=== PATIENT | female | born 1955 | race Caucasian/White ===

== ENCOUNTER → 2016-12-22 | Outpatient (CLI) | payer BC ==
[~2016-12-22] MED LIST: MULT-506 PO; OMEG10007 PO; [UNRECOGNIZED DRUG - OTHER]
--- NOTE | 2016-12-22 13:07 | MAMMOGRAPHY REPORT ---
BILATERAL DIGITAL SCREENING MAMMOGRAM TOMOSYNTHESIS WITH CAD: 12/22/2016 CLINICAL HISTORY: Routine screening. Patient has no complaints. TECHNIQUE: Bilateral breast tomosynthesis in addition to standard 2D mammography was performed. Curre nt study was also evaluated with a Computer Aided Detection (CAD) system. COMPARISON: Comparison is made to exams dated: 12/20/2015 mammogram, 11/29/2013 mammogram, 11/28/2012 m ammogram, 11/27/2011 mammogram - [facility], 08/19/2007, and 01/24/2003 mammogram - [facility]. BREAST COMPOSITION: There are scattered areas of fibroglandular density in both breasts. FINDINGS: There is a new 11 mm circumscribed mass in the upper outer middle to posterior left breast , for which additional targeted ultrasound is recommended. There is also possible focal asymmetry po sterior to the circumscribed mass for which additional spot compression tomosynthesis views and possi jazmin ultrasound are recommended, although this could represent normal overlapping tissue. There are scattered stable benign-appearing rounded punctate microcalcifications bilaterally. A stab le metallic biopsy marker in the 12:00 middle one third of the left breast. No other suspicious mass, architectural distortion or cluster of microcalcifications is seen. IMPRESSION: ACR BI-RADS CATEGORY 0: INCOMPLETE EVALUATION: NEED ADDITIONAL IMAGING EVALUATION The new circumscribed 11 mm mass in the left upper outer quadrant, and possible adjacent focal asymme try need additional imaging evaluation. The patient will be called to schedule an appointment. Approximately 10% of breast cancers are not detected with mammography. A negative mammographic report should not delay biopsy if a clinically suggestive mass is present. Jeannine Wiggins M.D. ay/:12/22/2016 08:43:52 Counselor Supervisor: Katelynn Gustafson RT(R)(Sabine)(BD), [facility] letter sent: Addl Imaging 0 BI-RADS Code: ACR BI-RADS Category 0: Incomplete Evaluation: Need Additional Imaging Evaluation
== END | disposition home or self-care (01) ==
LOC: C.MAMM 08:03
PROVIDERS: ATTEND Internal Medicine
DX: Z12.31 Encounter for screening mammogram for malignant neoplasm of breast (principal); N63 Unspecified lump in breast

== ENCOUNTER → 2016-12-31 | Outpatient (CLI) | payer BC ==
--- NOTE | 2016-12-31 16:01 | MAMMOGRAPHY REPORT ---
UNILATERAL LEFT DIGITAL DIAGNOSTIC MAMMOGRAM TOMOSYNTHESIS AND TARGETED LEFT ULTRASOUND: 12/31/2016 CLINICAL HISTORY: Callback from screening mammogram for left breast mass and possible left breast asy mmetry. TECHNIQUE: Breast tomosynthesis in addition to standard 2D mammography was performed. Spot compress ion left CC and MLO 2-D and tomosynthesis images were obtained. COMPARISON: Comparison is made to exams dated: 12/22/2016 mammogram, 12/20/2015 mammogram, 11/29/2013 m ammogram, 11/28/2012 mammogram, 11/27/2011 mammogram - [facility], and 08/19/2007. BREAST COMPOSITION: There are scattered areas of fibroglandular density in the left breast. FINDINGS: Spot compression views of the left breast demonstrate a round circumscribed 12 mm mass in the left upper outer quadrant. The previously described possible asymmetry posterior to the mass pritchard s not persist on the additional spot compression views, and is benign and compatible with normal fibr oglandular tissue. Targeted ultrasound was performed of the left upper outer quadrant in the region of the mammographic mass. In the left 3:00 breast, 9 cm from the nipple, there is an oval circumscribed anechoic mass wh ich measures 11 x 8 x 10 mm. This corresponds with the mammographic mass and is consistent with a be nign cyst. IMPRESSION: ACR BI-RADS CATEGORY 2: BENIGN, TARGETED ULTRASOUND ACR BI-RADS CATEGORY 2: BENIGN Benign 11 mm cyst in the left 3:00 breast on ultrasound, which corresponds with the new mammographic mass. There is no mammographic or targeted sonographic evidence of malignancy. A 1 year screening ma mmogram is recommended. The patient has been verbally notified of the results. Approximately 10% of breast cancers are not detected with mammography. A negative mammographic report should not delay biopsy if a clinically suggestive mass is present. Susan Proctor M.D. ah/:12/31/2016 14:35:20 Glass Beveller: Brooklynn ARAGON(Kiersten)(M), [facility] letter sent: Normal 1/2 BI-RADS Code: ACR BI-RADS Category 2: Benign Ultrasound BI-RADS: ACR BI-RADS Category 2: Benign
== END | disposition home or self-care (01) ==
LOC: C.MAMM 14:02
PROVIDERS: ATTEND Internal Medicine
DX: N63 Unspecified lump in breast (principal); R92.2 Inconclusive mammogram

== ENCOUNTER → 2017-12-24 | Outpatient (CLI) | payer OTHER ==
--- NOTE | 2017-12-27 07:45 | MAMMOGRAPHY REPORT ---
BILATERAL DIGITAL SCREENING MAMMOGRAM TOMOSYNTHESIS WITH CAD: 12/24/2017 CLINICAL HISTORY: Routine screening. Patient has no complaints. TECHNIQUE: The study was acquired using full field digital technology and interpreted from soft copy. Breast tomosynthesis in addition to standard 2D mammography was performed. Current study was also ev aluated with a Computer Aided Detection (CAD) system. COMPARISON: Comparison is made to exams dated: 12/31/2016 mammogram, 12/22/2016 mammogram, 12/20/2015 m ammogram, 11/29/2013 mammogram, 11/28/2012 mammogram, and 11/27/2011 mammogram - [facility]. BREAST COMPOSITION: There are scattered areas of fibroglandular density in both breasts. FINDINGS: No suspicious masses, calcifications, or areas of architectural distortion are noted in either breast . There has been no significant interval change compared to prior exams. Bilateral benign-appearing c alcifications are not significantly changed. A biopsy clip is again noted within the left 12:[address] Circumscribed mass within the left upper outer quadrant is again noted and was shown to represen t a benign cyst on the prior 2016 ultrasound exam. Other bilateral nodularity is stable compared to prior exams. IMPRESSION: BIRADS 2:BENIGN There is no mammographic evidence of malignancy. A 1 year screening mammogram is recommended.( 019) The patient will receive written notification of the results. Some breast cancers are not detected with mammography. A negative mammographic report should not james y biopsy if a clinically suggestive mass is present. Susan Proctor M.D. ah/:12/24/2017 15:44:40 Civil Design Specialist: RT Liseth(R)(M)(BD), [facility] letter sent: Normal 1/2 BI-RADS Code: ACR BI-RADS Category 2: Benign
== END | disposition home or self-care (01) ==
LOC: C.MAMM 08:42
PROVIDERS: ATTEND Internal Medicine
DX: Z12.31 Encounter for screening mammogram for malignant neoplasm of breast (principal)

== ENCOUNTER 2018-09-08 17:53 | Inpatient (IN) ==
[2018-09-08] MEDS ORDERED: SODIUM CHLORIDE 0.9% 1000ML 1,000 ML IV ONE (18:16)
[2018-09-08] MEDS ORDERED: ONDANSETRON INJ 2 MG/ML 2 ML VIAL IV STA ×2 (18:16→20:41)
--- NOTE | 2018-09-08 19:00 | XRay Report ---
XR chest 1V portable HISTORY: 63 years-old Female cough, chills acute right lower rib pain with cough and chills COMPARISON: None available TECHNIQUE: Portable AP view of the chest FINDINGS: Cardiac silhouette is upper limits of normal in size. There is no pneumothorax, large pleural effusio n or overt pulmonary edema. Subsegmental left basilar opacities predominately appear to be linear. Mi ld blunting of the right costophrenic angle suggests atelectasis. Bones appear grossly intact. IMPRESSION: Minimal linear left basilar opacities suggest probable atelectasis. Pneumonitis considere d less likely. The above report was generated using voice recognition software. It may contain grammatical, syntax o r spelling errors. Electronically signed by: Diego Carpenter M.D. 09/08/2018 6:59 PM
[2018-09-08] MEDS: fentaNYL citrate 100 MCG/2 ML VIAL IV PRN ×2 (19:15→21:38)
[2018-09-08 19:19] LABS: Basophils # (auto) 0.02 K/uL (0-0.2); Basophils % (auto) 0.3 %; Eosinophils # (auto) 0.07 K/uL (0-0.5); Eosinophils % (auto) 0.9 %; Hemoglobin 15.4 g/dL (12.0-16.0); Immature Granulocytes # (auto) 0.02 K/uL (0.00-0.02); Immature Granulocytes % (auto) 0.3 %; Lymphocytes # (auto) 1.64 K/uL (1.2-3.4); Lymphocytes % (auto) 21.5 %; Mean Corpuscular Hgb Conc 34.2 g/dL (32-36); Mean Platelet Volume 9.8 fL (7.4-10.4); Monocytes # (auto) 0.67 K/uL (0.11-0.59); Monocytes % (auto) 8.8 %; Neutrophils % (auto) 68.2 %; Platelet Count 246 K/uL (130-400); RDW Coefficient of Variation 13.8 % (11.5-14.5); RDW Standard Deviation 42.4 fL (36.4-46.3); Red Blood Count 5.36 M/uL (4.2-5.4); White Blood Count 7.62 K/uL (4.8-10.8)
[2018-09-08 19:40] LABS: Alanine Aminotransferase 499 U/L (12-78); Albumin Level 3.7 gm/dl (3.4-5.0); BUN Creatinine Ratio 13.3 (10-20); Blood Urea Nitrogen 11 mg/dl (7-18); Calcium 9.3 mg/dl (8.5-10.1); Carbon Dioxide 27 mmol/L (21-32); Chloride 109 mmol/L (98-107); Est GFR (African American) 88.2; Est GFR (Non-African American) 76.1; Glucose 94 mg/dl (70-99); Sodium 142 mmol/L (136-145)
[2018-09-08 19:43] LABS: Albumin Globulin Ratio 0.9 (0.9-2); Alkaline Phosphatase 149 U/L (45-117); Bilirubin,Total 2.1 mg/dl (0.2-1); Total Protein 7.7 gm/dl (6.4-8.2); Troponin I < 0.015 ng/ml (0-0.045)
--- NOTE | 2018-09-08 20:06 | Ultrasound Report ---
US gallbladder HISTORY: 63 years-old Female ruq pain, n/v acute right upper quadrant abdominal pain with nausea and vomiting COMPARISON: Chest radiograph of same day TECHNIQUE: Multiple real-time sonographic images of the abdominal right upper quadrant were obtained assessing grayscale appearance and color flow FINDINGS: Imaged pancreas appears normal. There may be mild intrahepatic biliary ductal dilation. There is nons pecific slightly increased echogenicity of the liver. No evidence of ascites or cirrhosis. Mild gallb ladder distention. Suggestion of trace pericholecystic fluid versus a meniscal body wall which measur es the upper limits of normal at 3 mm. Sonographic Alvarado sign reported as negative. Common bile duct is dilated measuring 1.4 cm. Trace gallbladder sludge without shadowing cholelithiasis. Imaged right kidney demonstrates no renal calculi. Mild pelviectasis incidentally noted. IMPRESSION: 1. Mild gallbladder distention with gallbladder sludge. Additionally, the gallbladder wall measures w ithin the upper limits of normal and there is suggestion of trace pericholecystic edema versus edemat ous gallbladder wall. Correlate clinically to exclude acute acalculus cholecystitis. 2. Dilated common bile duct without obstructing biliary stone or lesion identified on these images. C orrelate clinically and with laboratory analysis to exclude obstructive etiology. 3. Suggestion of hepatic steatosis. The above report was generated using voice recognition software. It may contain grammatical, syntax o r spelling errors. Electronically signed by: Diego Carpenter M.D. 09/08/2018 8:04 PM
[2018-09-08 20:39] LABS: Prothrombin Time 10.6 Seconds (9.0-12.0)
[2018-09-08 20:44] LABS: Potassium 3.8 mmol/L (3.5-5.1)
[2018-09-08] MEDS ORDERED: SODIUM CHLORIDE 0.9% 1000ML 1,000 ML IV SCH (20:45)
[2018-09-08 20:49] LABS: Magnesium 2.3 mg/dl (1.8-2.4)
[2018-09-08 20:51] LABS: Appearance Urine Clear (Clear); Bacteria Urine Automated Negative (Negative); Bilirubin Urine Negative (Negative); Blood Urine Negative (Negative); Color Urine Yellow; Glucose Urine UA Negative (Negative); Ketones Urine Negative (Negative); Leukocyte Esterase Urine 1+ (Negative); Nitrite Urine Negative (Negative); Protein Urine Negative (Negative); RBC Urine Automated 0-4 /hpf (0-4); Specific Gravity Urine 1.007 (1.000-1.030); Urobilinogen Urine Negative (Negative); pH Urine 7.5 (4.5-7.5)
--- NOTE | 2018-09-08 21:51 | History & Physical Report ---
Date of Service September 08, 2018 Assessment & Plan (1) Cholecystitis: Acalculous cholecystitis/pancreatitis-- Patient symptoms, and imaging via gallbladder ultrasound and MRCP did not detect any stones in the common bile duct or mass. NPO NSS + KCl 20 mEq at 100 mils per hour. Zosyn 3.375 mg IV every 8 hours. Zofran 4 mg IV every 6 hours as needed Pantoprazole 40 mg IV daily Morphine sulfate 4 mg IV every 3 hours as needed pain. Follow serial CBC with differential, chemistry profile, magnesium and lipase levels. Consult gastroenterology for possible ERCP. If the ERCP is not performed, then consult will be made for general surgery Present on Admission?: Yes (2) Pancreatitis: As above. Present on Admission?: Yes History of Present Illness Chief Complaint: Patient presents emergency department with complaint of abdominal discomfort in the epigastric and right upper quadrant area with rotation around her right flank, along with nausea. Primary Care Provider: Zeyad Chambers MD The patient is a 63-year-old female who presents with above symptoms worsening over the past 24 hours. Upon reflection, she members having a similar episode a week and half or so ago and has had some indigestion in between times. She has not had recent travels or sick exposures. 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 Beliefs That Will Affect Care: None marital status: Current Living Situation: Spouse Other Information That Helps Us Care for You: No Feels Safe at Home: Yes Safety Concerns: Feels Safe At This Time Smoking Status: Never smoker Hx Alcohol Use: Yes Hx Substance Use: No Review of Systems The patient denies chest pain, palpitations, shortness of breath, dyspnea on exertion, cough, lower extremity swelling, sore throat, fevers, chills, sweats, vomiting, diarrhea , constipation, abdominal pain, pelvic pain, blood in urine or stool, dysuria, urinary frequency or urgency, lightheadedness, dizziness, headache, memory loss, loss of consciousness, rash, abnormal bruising or bleeding, imbalance, focal or generalized weakness, numbness or tingling in arms or legs, generalized arthralgias or myalgias, back or neck pain, or night sweats. The review of systems is otherwise negative other than for that already noted above, and at least 10 systems have been reviewed. Physical Exam Vital Signs (Past 24 Hours): Last Vital Signs Temp 36.6 C 09/08/18 17:59 Pulse 60 09/08/18 21:37 Resp 14 09/08/18 21:37 BP 183/92 H 09/08/18 21:37 Pulse Ox 89 L 09/08/18 21:49 Physical Exam: The patient is awake, alert and oriented 3, well developed and well nourished, normocephalic and atraumatic, lying in bed and in no acute distress. HEENT--PERRL, EOMI, mucous membranes and oropharynx dry. Neck--supple. No JVD. No bruits. Thyroid normal, trachea midline, no adenopathy. Heart--normal S1 and S2. No murmurs, rubs or gallops. Lungs--clear bilaterally, no respiratory distress, no accessory muscle use. Abdomen--normal bowel sounds and soft. Tender in epigastrium and right upper quadrant. Nondistended. Extremities--no cyanosis or clubbing. No edema. There are good distal pulses b/l. Dermatologic--normal skin turgor, normal color, no abnormal lymph nodes, no rash. Neurologic--cranial nerves II through XII grossly intact. Rheumatologic--normal range of motion. Psychiatric--normal affect. Results & Data Laboratory Results Laboratory Results WBC 7.62 K/uL (4.8-10.8) 09/08/18 19:11 RBC 5.36 M/uL (4.2-5.4) 09/08/18 19:11 Hgb 15.4 g/dL (12.0-16.0) 09/08/18 19:11 Hct 45.0 % (37-47) 09/08/18 19:11 MCV 84.0 fL (80-100) 09/08/18 19:11 MCH 28.7 pg (25-34) 04/04/19 19:11 MCHC 34.2 g/dL (32-36) 09/08/18 19:11 RDW Std Deviation 42.4 fL (36.4-46.3) 09/08/18 19:11 RDW Coeff of Antoine 13.8 % (11.5-14.5) 09/08/18 19:11 Plt Count 246 K/uL (130-400) 09/08/18 19:11 MPV 9.8 fL (7.4-10.4) 09/08/18 19:11 Immature Gran % (Auto) 0.3 % 09/08/18 19:11 Neut % (Auto) 68.2 % 09/08/18 19:11 Lymph % (Auto) 21.5 % 09/08/18 19:11 [place] % (Auto) 8.8 % 09/08/18 19:11 Eos % (Auto) 0.9 % 09/08/18 19:11 Baso % (Auto) 0.3 % 09/08/18 19:11 Immature Gran # (Auto) 0.02 K/uL (0.00-0.02) 09/08/18 19:11 Neut # (Auto) 5.20 K/uL (1.4-6.5) 09/08/18 19:11 Lymph # (Auto) 1.64 K/uL (1.2-3.4) 09/08/18 19:11 [place] # (Auto) 0.67 K/uL (0.11-0.59) H 09/08/18 19:11 Eos # (Auto) 0.07 K/uL (0-0.5) 09/08/18 19:11 Baso # (Auto) 0.02 K/uL (0-0.2) 09/08/18 19:11 PT 10.6 Seconds (9.0-12.0) 09/08/18 20:19 INR 1.0 (0.9-1.1) 09/08/18 20:19 Sodium 142 mmol/L (136-145) 09/08/18 19:11 Potassium 3.8 mmol/L (3.5-5.1) 09/08/18 20:19 Chloride 109 mmol/L (98-107) H 09/08/18 19:11 Carbon Dioxide 27 mmol/L (21-32) 09/08/18 19:11 Anion Gap 6.0 (3-11) 09/08/18 19:11 BUN 11 mg/dl (7-18) 09/08/18 19:11 Creatinine 0.83 mg/dl (0.6-1.2) 09/08/18 19:11 Est Cr Clr Drug Dosing 78.0 ml/min 09/08/18 19:11 Est GFR ( Amer) 88.2 09/08/18 19:11 Est GFR (Non-Af Amer) 76.1 09/08/18 19:11 BUN/Creatinine Ratio 13.3 (10-20) 09/08/18 19:11 Glucose 94 mg/dl (70-99) 09/08/18 19:11 Calcium 9.3 mg/dl (8.5-10.1) 09/08/18 19:11 Magnesium 2.3 mg/dl (1.8-2.4) 09/08/18 20:19 Total Bilirubin 2.1 mg/dl (0.2-1) H 09/08/18 19:11 AST 633 U/L (15-37) H 09/08/18 20:19 ALT 499 U/L (12-78) H 09/08/18 19:11 Alkaline Phosphatase 149 U/L (45-117) H 09/08/18 19:11 Troponin I < 0.015 ng/ml (0-0.045) 09/08/18 19:11 Total Protein 7.7 gm/dl (6.4-8.2) 09/08/18 19:11 Albumin 3.7 gm/dl (3.4-5.0) 09/08/18 19:11 Globulin 4.0 gm/dl (2.5-4.0) 09/08/18 19:11 Albumin/Globulin Ratio 0.9 (0.9-2) 09/08/18 19:11 Lipase 3582 U/L (73-393) H 09/08/18 19:11 Urine Color Yellow 09/08/18 20:15 Urine Appearance Clear (Clear) 09/08/18 20:15 Urine pH 7.5 (4.5-7.5) 09/08/18 20:15 Ur Specific [place] 1.007 (1.000-1.030) 09/08/18 20:15 Urine Protein Negative (Negative) 09/08/18 20:15 Urine Glucose (UA) Negative (Negative) 09/08/18 20:15 Urine Ketones Negative (Negative) 09/08/18 20:15 Urine Blood Negative (Negative) 09/08/18 20:15 Urine Nitrite Negative (Negative) 09/08/18 20:15 Urine Bilirubin Negative (Negative) 09/08/18 20:15 Urine Urobilinogen Negative (Negative) 09/08/18 20:15 Ur Leukocyte Esterase 1+ (Negative) H 09/08/18 20:15 Urine WBC (Auto) 1-5 /hpf (0-5) 09/08/18 20:15 Urine RBC (Auto) 0-4 /hpf (0-4) 09/08/18 20:15 U Hyaline Cast (Auto) 1-5 /lpf (0-5) 09/08/18 20:15 U Epithel Cells (Auto) 10-20 /lpf (0-5) H 09/08/18 20:15 Urine Bacteria (Auto) Negative (Negative) 09/08/18 20:15 Hepatitis C Ab Screen Neg (Neg) 09/08/18 20:19 Diagnostic Findings [facility], [place] [phone] XRay Report Patient: ABRAN HELTON Date: 09/08/18 MR#: [id number]: 952 [address]SH[address] Acct ID:[id number]: Date: 1955[facility] Zip[facility] [place] [address] Age: 63Location: ED Sex: F Room/Bed: Att Phy: Diagnosis: PAIN IN STOMACH Alexandrea Phy: Zeyad Chambers, MDService Date: 09/08/18 Fam Phy: Interpreting Phy: Tye Carpenter Admit Phy: Ordering Phy: Adelaida Angel DO cc: ~ XR chest 1V portable HISTORY: 63 years-old Female cough, chills acute right lower rib pain with cough and chills COMPARISON: None available TECHNIQUE: Portable AP view of the chest FINDINGS: Cardiac silhouette is upper limits of normal in size. There is no pneumothorax, large pleural effusion or overt pulmonary edema. Subsegmental left basilar opacities predominately appear to be linear. Mild blunting of the right costophrenic angle suggests atelectasis. Bones appear grossly intact. IMPRESSION: Minimal linear left basilar opacities suggest probable atelectasis. Pneumonitis considered less likely. The above report was generated using voice recognition software. It may contain grammatical, syntax or spelling errors. Electronically signed by: Diego Carpenter M.D. 09/08/2018 6:59 PM [place], [place] [phone] Ultrasound Report Patient: ABRAN HELTON Date: 09/08/18 MR#: [id number]: [address] Acct ID:[id number]: Date: 1955[facility] Zip: [place] [address] Age: 63Location: ED Sex: F Room/Bed: Att Phy: Diagnosis: PAIN IN STOMACH Alexandrea Phy: Zeyad Chambers MDService Date: 09/08/18 Fam Phy: Interpreting Phy: Tye Carpenter Admit Phy: Ordering Phy: Adelaida Angel DO cc: ~ US gallbladder HISTORY: 63 years-old Female ruq pain, n/v acute right upper quadrant abdominal pain with nausea and vomiting COMPARISON: Chest radiograph of same day TECHNIQUE: Multiple real-time sonographic images of the abdominal right upper quadrant were obtained assessing grayscale appearance and color flow FINDINGS: Imaged pancreas appears normal. There may be mild intrahepatic biliary ductal dilation. There is nonspecific slightly increased echogenicity of the liver. No evidence of ascites or cirrhosis. Mild gallbladder distention. Suggestion of trace pericholecystic fluid versus a meniscal body wall which measures the upper limits of normal at 3 mm. Sonographic Alvarado sign reported as negative. Common bile duct is dilated measuring 1.4 cm. Trace gallbladder sludge without shadowing cholelithiasis. Imaged right kidney demonstrates no renal calculi. Mild pelviectasis incidentally noted. IMPRESSION: 1. Mild gallbladder distention with gallbladder sludge. Additionally, the gallbladder wall measures within the upper limits of normal and there is suggestion of trace pericholecystic edema versus edematous gallbladder wall. Correlate clinically to exclude acute acalculus cholecystitis. 2. Dilated common bile duct without obstructing biliary stone or lesion identified on these images. Correlate clinically and with laboratory analysis to exclude obstructive etiology. 3. Suggestion of hepatic steatosis. The above report was generated using voice recognition software. It may contain grammatical, syntax or spelling errors. Electronically signed by: Diego Carpenter M.D. 09/08/2018 8:04 PM Dictated: 09/08/181999 Transcribed: 09/08/181999 [place], [place] [phone] Magnetic Resonance Report Patient: ABRAN HELTON Date: 09/08/18 MR#: [id number]: 952 [address]SHER Acct ID:[id number]: Date: 1955[facility] Zip: [place] [address] Age: 63Location: 3W Sex: F Room/Bed: [address] Phy: Avila Stone M.D.Diagnosis: ACALCULOUS CHOLECYSTITIS,PANCREATITIS Alexandrea Phy: Zeyad Chambers, STACYervice Date: 09/08/18 [facility] Phy: Interpreting Phy: Tye Carpenter Admit Phy: Avila Stone M.D. Ordering Phy: Adelaida Angel DO cc: ~ MR MRCP HISTORY: 63 years-old Female pancreatitis, dilated CBD acute right upper quadrant abdominal pain with nausea COMPARISON: Right upper quadrant abdominal ultrasound of same day TECHNIQUE: MRCP according to institutional protocol was obtained without the use of contrast. FINDINGS: Lower chest appears unremarkable. There is suggestion of multiple bilateral renal sinus cysts, left greater than right. No aortic aneurysm or adenopathy. No bowel dilation. Liver, spleen, pancreas and adrenal glands appear grossly unremarkable. Abdominal wall and bony structures also are unremarkable. Study is mildly motion degraded. Dilated common bile duct measures up to 12 mm transversely. No significant intrahepatic biliary ductal dilation. Ill-defined foci noted within the distribution the distal common bile duct as seen on image 94 series 5 and image 12 series 3 are likely artifactual. No definitive choledocholithiasis identified. No filling defect seen within the visualized cystic duct. Gallbladder is distended with mildly thickened is edematous wall. No cholelithiasis identified. Trace fluid about the aditya hepatis. Pancreatic duct appears normal. No evidence of pancreatic divisum. IMPRESSION: 1. Gallbladder distention with edematous mildly thickened gallbladder wall redemonstrated. No associated cholelithiasis identified. Correlate clinically to exclude acalculus cholecystitis. 2. Dilation of the common bile duct, 1.2 cm redemonstrated. Ill-defined foci within the distribution of the distal common bile duct are likely artifactual with choledocholithiasis considered less likely. 3. Trace fluid noted about the aditya hepatis. The above report was generated using voice recognition software. It may contain grammatical, syntax or spelling errors. Electronically signed by: Diego Carpenter M.D. 09/08/2018 10:49 PM Dictated: 09/08/182237 Transcribed: 09/08/182237 Code Status & VTE Plan Code Status Full code VTE Prophylaxis Plan VTE Prophylaxis will be ordered: Yes (1) Pancreatitis Acute pancreatitis complication: unspecified Chronicity: acute Pancreatitis type: unspecified pancreatitis type Qualified Code(s): K85.90 - Acute pancreatitis without necrosis or infection, unspecified
[2018-09-08] MEDS ORDERED: PIPERACILL/TAZOBAC CONSULT ACTIVE PRN (22:42)
[2018-09-08] MEDS ORDERED: MoRPHine SULFATE 4 MG/ML 1 ML CARP\\VIAL IV PRN (22:42)
[2018-09-08] MEDS ORDERED: ONDANSETRON INJ 2 MG/ML 2 ML VIAL IV PRN (22:42)
--- NOTE | 2018-09-08 22:51 | Magnetic Resonance Report ---
MR MRCP HISTORY: 63 years-old Female pancreatitis, dilated CBD acute right upper quadrant abdominal pain wit h nausea COMPARISON: Right upper quadrant abdominal ultrasound of same day TECHNIQUE: MRCP according to institutional protocol was obtained without the use of contrast. FINDINGS: Lower chest appears unremarkable. There is suggestion of multiple bilateral renal sinus cysts, left g reater than right. No aortic aneurysm or adenopathy. No bowel dilation. Liver, spleen, pancreas and a drenal glands appear grossly unremarkable. Abdominal wall and bony structures also are unremarkable. Study is mildly motion degraded. Dilated common bile duct measures up to 12 mm transversely. No signi ficant intrahepatic biliary ductal dilation. Ill-defined foci noted within the distribution the dista l common bile duct as seen on image 94 series 5 and image 12 series 3 are likely artifactual. No defi nitive choledocholithiasis identified. No filling defect seen within the visualized cystic duct. Gall bladder is distended with mildly thickened is edematous wall. No cholelithiasis identified. Trace flu id about the aditya hepatis. Pancreatic duct appears normal. No evidence of pancreatic divisum. IMPRESSION: 1. Gallbladder distention with edematous mildly thickened gallbladder wall redemonstrated. No associa natasha cholelithiasis identified. Correlate clinically to exclude acalculus cholecystitis. 2. Dilation of the common bile duct, 1.2 cm redemonstrated. Ill-defined foci within the distribution of the distal common bile duct are likely artifactual with choledocholithiasis considered less likely . 3. Trace fluid noted about the aditya hepatis. The above report was generated using voice recognition software. It may contain grammatical, syntax o r spelling errors. Electronically signed by: Diego Carpenter M.D. 09/08/2018 10:49 PM
[2018-09-08] MEDS ORDERED: NSS + 20MEQ KCL 20 MEQ/1,000 ML BAG IV SCH (23:00)
[2018-09-08] MEDS ORDERED: PIPERACILLIN/TAZOBACTAM 3.375 GM in DEXTROSE 5% 100 ML IV ONE (23:00)
[2018-09-09] MEDS ORDERED: PROCHLORPERAZINE 5 MG in SYRINGE 4 ML IV PRN (00:08)
[2018-09-09] MEDS: PIPERACILLIN/TAZOBACTAM 3.375 GM in DEXTROSE 5% 100 ML IV SCH ×2 (06:01→18:01)
[2018-09-09 06:29] LABS: Basophils # (auto) 0.01 K/uL (0-0.2); Basophils % (auto) 0.2 %; Eosinophils # (auto) 0.07 K/uL (0-0.5); Eosinophils % (auto) 1.1 %; Hemoglobin 14.2 g/dL (12.0-16.0); Immature Granulocytes # (auto) 0.02 K/uL (0.00-0.02); Immature Granulocytes % (auto) 0.3 %; Lymphocytes # (auto) 1.16 K/uL (1.2-3.4); Lymphocytes % (auto) 18.7 %; Mean Corpuscular Hgb Conc 33.8 g/dL (32-36); Mean Platelet Volume 9.4 fL (7.4-10.4); Monocytes # (auto) 0.31 K/uL (0.11-0.59); Neutrophils # (auto) 4.64 K/uL (1.4-6.5); Neutrophils % (auto) 74.7 %; Platelet Count 237 K/uL (130-400); RDW Coefficient of Variation 13.9 % (11.5-14.5); RDW Standard Deviation 42.4 fL (36.4-46.3); White Blood Count 6.21 K/uL (4.8-10.8)
[2018-09-09 06:46] LABS: Partial Thromboplastin Ratio 0.9; Partial Thromboplastin Time 23.9 Seconds (21.0-31.0); Prothrombin Time 10.7 Seconds (9.0-12.0)
[2018-09-09 06:56] LABS: Albumin Level 3.1 gm/dl (3.4-5.0); BUN Creatinine Ratio 12.8 (10-20); Calcium 8.6 mg/dl (8.5-10.1); Creatinine Clr Calc Pharmacy 76.2 ml/min; Est GFR (African American) 86.9
[2018-09-09 06:59] LABS: Albumin Globulin Ratio 0.9 (0.9-2); Bilirubin,Total 1.6 mg/dl (0.2-1); Globulin 3.3 gm/dl (2.5-4.0); Total Protein 6.4 gm/dl (6.4-8.2)
[2018-09-09] MEDS: LACTATED RINGER'S 1,000 ML IV SCH ×3 (09:34→22:37)
[2018-09-09] MEDS: PANTOprazole 40 MG in SYRINGE 0 ML IV SCH (10:54)
[2018-09-09 12:37] LABS: Alanine Aminotransferase 748 U/L (12-78); Alkaline Phosphatase 152 U/L (45-117); Bilirubin,Total 1.4 mg/dl (0.2-1); Total Protein 6.1 gm/dl (6.4-8.2)
[2018-09-09] MEDS ORDERED: PROPOFOL IV EMULSION 10 MG/ML 20 ML VIAL IV ONE (13:29)
[2018-09-09] MEDS ORDERED: LIDOCAINE HCL 2% 2 ML VIAL/AMP(20MG/ML) INFIL ONE (13:29)
[2018-09-09] MEDS ORDERED: ONDANSETRON INJ 2 MG/ML 2 ML VIAL ONE (13:29)
[2018-09-09] MEDS ORDERED: ROCURONIUM BROMIDE 10 MG/ML 5 ML VIAL ONE (13:29)
[2018-09-09] MEDS ORDERED: fentaNYL citrate 100 MCG/2 ML VIAL ONE ×2 (13:30→15:47)
[2018-09-09] MEDS ORDERED: MIDAZOLAM HCL 1 MG/ML 2ML VIAL ONE (13:30)
--- NOTE | 2018-09-09 13:33 | Gastrointestinal Consultation ---
Date of Consultation September 09, 2018 Assessment & Plan (1) Choledocholithiasis: Mr. Lewis is a 63 yr old female with elevated LFTs, dilated bile ducts, fever all suggestive of choledocholithasis with ascending cholangitis. 1. Cont Zosyn 2. Follow LFTs, lipase. WBC 3. ERCP this afternoon by Dr. Villalobos Supervising Physician Co-Signing Physician Notes I saw and evaluated the patient. She presents with interim discomfort over the past 2 weeks. Last night she presented to the emergency room and found to have elevation of her liver enzymes and pancreatic enzymes. MRCP was suspicious for a stone within the distal common bile duct. Physical examination No obvious distress, mild scleral icterus Abdomen soft mild right upper quadrant tenderness noted Impression: Patient with symptoms suggestive of gallstone pancreatitis. Given the equivocal imaging perhaps we should proceed with upper endoscopy and endoscopic ultrasound to identify ductal pathology. We will then proceed with ERCP for gallstone removal. We have discussed the risks of the procedures to include bleeding, infection, perforation, pain, pancreatitis and failed biliary cannulation. History of Present Illness Reason for Consultation: dilated bile duct Requesting Physician: Dr. Orellana Attending Physician: Charan Orellana MD History of Present Illness Ms. Jay Lewis is a 63 yr old female pt of Dr. Chambers with a an otherwise unremarkable PMH/PSH hx who presented to [facility] last evening for intermittent RUQ pain of one week duration. With the pain she has sometimes had nausea and vomiting. She had dark urine but no acholic stools. Last evening she had a fever and chills. Imaging with bile duct dilation to 1.2cm, equivocal for choledocholithiasis. Her daughter and are with her in her hospital room. She is awake, alert, oriented and hemodynamically stable. 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 Eyes: no vision changes, no eye redness or pain Respiratory: No SOB, no cough Cardiovascular: No irregular heartbeats or chest pain Abdomen: + intermittent RUQ pain, nausea/vomiting Ext: No edema Hem: No excessive bruising/bleeding Physical Exam Vital Signs (Past 24 Hours): Last Vital Signs Temp 36.9 C 09/09/18 07:45 Pulse 62 09/09/18 07:45 Resp 16 09/09/18 07:45 BP 138/88 09/09/18 07:45 Pulse Ox 95 09/09/18 07:45 Constitutional: WD/WN, vitals as above Eyes: PERRL, conjunctivae normal, anicteric sclerae ENMT: external ear and nose normal, oropharynx normal Neck: trachea midline, no thyromegaly Respiratory: normal respiratory effort, lungs clear to auscultation Cardiovascular: RRR, no murmur, no edema Gastrointestinal (Abdomen): Inspection/Auscultation: abdomen not distended Percussion/Palpation: + abdomen tender (RUQ) and abdomen soft Skin: normal turgor; no jaundice and no dry skin Neurologic: patellar DTR's 2+ bilat, sensation intact Psychiatric: A+Ox3, euthymic affect Lymphatic: no cervical or axillary lymphadenopathy Results & Data Diagnostic Findings MRCP 09/08/18: 1. Gallbladder distention with edematous mildly thickened gallbladder wall redemonstrated. No associated cholelithiasis identified. Correlate clinically to exclude acalculus cholecystitis. 2. Dilation of the common bile duct, 1.2 cm redemonstrated. Ill-defined foci within the distribution of the distal common bile duct are likely artifactual with choledocholithiasis considered less likely. 3. Trace fluid noted about the aditya hepatis. GB US 09/08/18: 1. Mild gallbladder distention with gallbladder sludge. Additionally, the gallbladder wall measures within the upper limits of normal and there is suggestion of trace pericholecystic edema versus edematous gallbladder wall. Correlate clinically to exclude acute acalculus cholecystitis. 2. Dilated common bile duct without obstructing biliary stone or lesion identified on these images. Correlate clinically and with laboratory analysis to exclude obstructive etiology. 3. Suggestion of hepatic steatosis Medications Administered zosyn
--- NOTE | 2018-09-09 13:41 | Anesthesiology Consultation ---
Date of Service September 09, 2018 Assessment & Plan Chart Review Chart Review: Acceptable Risk for Surgery and Patient NOT seen in Pre Admission Testing Consults Requested none ASA ASA2 Proposed Anesthesia Anesthesia Type: General Risk / Benefits Reviewed With: PT / POA / Parent / Guardian, Accepts Plan and Informed Consent Obtained NPO Date Last Intake of Fluids: 09/08/18 Time Last Intake of Fluids: 23:00 Date Last Intake of Solids: 09/08/18 Time Last Intake of Solids: 19:00 History Surgery Operation Date: 09/09/18 13:00 Proposed Procedures p Endoscopic Retrograde Cholangiopancreatography - Nona Villalobos Height/Weight Height: 5 ft 4 in Weight: 89.5 kg Allergies Allergy/AdvReac Type Severity Reaction Status Date / Time Sulfa (Sulfonamide Allergy Unknown UNKNOWN Verified 09/08/18 19:16 Antibiotics) Medications Home Medications Medication Instructions Recorded Confirmed Last Taken No Known Home Medications 09/08/18 09/08/18 Unknown Active Medications Generic Name Dose Route Start Last Admin Trade Name Freq PRN Reason Stop Dose Admin Pantoprazole Sodium 40 mg/ 10 mls @ 5 mls/min 09/09/18 11:00 09/09/18 10:54 Syringe IV 10/09/18 10:59 5 mls/min DAILY@1100 DENITA Administration Piperacillin Sod/Tazobactam 115 mls @ 28.75 mls/hr 09/09/18 06:00 09/09/18 10:55 Sod 3.375 gm/ Dextrose IV 09/19/18 05:59 Infused Q8H DENITA Infusion Protocol Lactated Ringer's 1,000 mls @ 200 mls/hr 09/09/18 09:00 09/09/18 13:23 Lr IV 09/09/18 18:59 0 mls/hr .Q5H DENITA Infusion Past Medical History Medical History Obesity Past Surgical History Surgical History No significant past surgical history H/O colonoscopy Past Anesthesia History No Hx of Anesthesia Complications and No Family Hx of Anesthesia Complications History of PONV No Motion Sickness Screening History of Motion Sickness: No Social History Smoking Status: Never smoker Do You Dip or Chew Tobacco: No Hx Alcohol Use: Yes alcohol intake frequency: holidays/special occasions only Hx Substance Use: No substance use type: does not use Exercise / Class Metabolic Activity II 4-5 Yardwork/Stairs/Walk up hill Physical Exam Vital Signs Last Vital Signs Temp 36.9 C 09/09/18 07:45 Pulse 62 09/09/18 07:45 Resp 16 09/09/18 07:45 BP 138/88 09/09/18 07:45 Pulse Ox 95 09/09/18 07:45 Constitutional + obese ENMT Mouth: no dentition abnormality Thyromental Distance: > or= 3.5 Finger Breadths Mallampati Class: II Neck normal visual inspection and trachea midline; neck extension not limited Respiratory normal respiratory effort Auscultation: lungs clear to auscultation bilaterally Cardiovascular Rate/Rhythm: regular rate and regular rhythm Heart Sounds: no murmur Vessels: no carotid bruit Musculoskeletal Spine: normal cervical ROM Neurologic moves all extremities Motor/Sensory: no sensory deficit Psychiatric Orientation: alert and oriented x 3 Testing Electrocardiogram Date: 09/08/18 Findings: + SB @ (at 56 w/sinus arrhythmia;LAD;LVH) Chest X-Ray Date: 09/08/18 Findings: + atelectasis (left basilar) Laboratory Results 09/09/18 06:13 09/09/18 06:13 PT 10.7 Seconds (9.0-12.0) 09/09/18 06:13 INR 1.0 (0.9-1.1) 09/09/18 06:13 APTT 23.9 Seconds (21.0-31.0) 09/09/18 06:13 Urine Color Yellow 09/08/18 20:15 Urine Appearance Clear (Clear) 09/08/18 20:15 Urine pH 7.5 (4.5-7.5) 09/08/18 20:15 Ur Specific [place] 1.007 (1.000-1.030) 09/08/18 20:15 Urine Protein Negative (Negative) 09/08/18 20:15 Urine Glucose (UA) Negative (Negative) 09/08/18 20:15 Urine Ketones Negative (Negative) 09/08/18 20:15 Urine Nitrite Negative (Negative) 09/08/18 20:15 Ur Leukocyte Esterase 1+ (Negative) H 09/08/18 20:15 Urine WBC (Auto) 1-5 /hpf (0-5) 09/08/18 20:15 Urine RBC (Auto) 0-4 /hpf (0-4) 09/08/18 20:15 U Hyaline Cast (Auto) 1-5 /lpf (0-5) 09/08/18 20:15 U Epithel Cells (Auto) 10-20 /lpf (0-5) H 09/08/18 20:15 Urine Bacteria (Auto) Negative (Negative) 09/08/18 20:15
[2018-09-09 13:42] LABS: Bilirubin Direct 0.5 mg/dl (0-0.2)
--- NOTE | 2018-09-09 14:01 | History & Physical Bridge Note ---
Date of Service September 09, 2018 History & Physical Bridge Note I have examined the patient, reviewed the History & Physical and in the interval since the performance of the History & Physical I have noted the following changes of clinical significance: no changes noted
[2018-09-09] MEDS ORDERED: INDOMETHACIN 50 MG SUPP PR ONE (14:08)
--- NOTE | 2018-09-09 14:09 | Hospitalist Progress Note ---
Date of Service September 09, 2018 Assessment & Plan (1) Cholecystitis: Acalculous cholecystitis/pancreatitis-- Patient symptoms, and imaging via gallbladder ultrasound and MRCP did not detect any stones in the common bile duct or mass however there was CBD dilatation. NPO LR @ 200 ml/hr Continue Zosyn, Zofran, Protonix Morphine sulfate 4 mg IV every 3 hours as needed pain. AST, ALT peaked at 826 and 873, Lipase peaked at 17,931 though unclear if this is an accurate result as next value six hours later was 8,539. Consulted gastroenterology - for ERCP this afternoon (2) Pancreatitis: As above. (3) Hepatic steatosis: As seen on gallbladder US - lifestyle counseling, follow up outpatient Subjective Ms. Lewis is feeling better today than on admission. Her pain is well controlled, no nausea or vomiting. Review of Systems All systems reviewed & are unremarkable except as noted in HPI & below Physical Exam Vital Signs (Past 24 Hours): Last Vital Signs Temp 36.8 C 09/09/18 13:38 Pulse 66 09/09/18 13:38 Resp 16 09/09/18 13:38 BP 164/85 H 09/09/18 13:38 Pulse Ox 95 09/09/18 13:38 Physical Exam: General: no distress Eyes: normal inspection, PERLL Respiratory: chest non tender, clear to auscultation, normal breath sounds, no respiratory distress, no accessory muscle use Cardiac: regular rate and rhythm, no rub or gallop, no murmur, no edema, no jvd GI/: active bowel sounds, no abd pain or tenderness, soft, non distended Extremities: normal range of motion, normal strength, non tender Neuro/Psych: alert and oriented x 3, normal mood and affect Skin: normal color, dry Results & Data Laboratory Results Abnormal lab results 09/08/18 09/08/18 09/08/18 Range/Units 19:11 19:11 20:15 Lymph # (Auto) (1.2-3.4) K/uL Pettis # (Auto) 0.67 H (0.11-0.59) K/uL Chloride 109 H (98-107) mmol/L Total Bilirubin 2.1 H (0.2-1) mg/dl Direct Bilirubin (0-0.2) mg/dl AST (15-37) U/L ALT 499 H (12-78) U/L Alkaline Phosphatase 149 H (45-117) U/L Total Protein (6.4-8.2) gm/dl Albumin (3.4-5.0) gm/dl Lipase 3582 H (73-393) U/L Ur Leukocyte Esterase 1+ H (Negative) U Epithel Cells (Auto) 10-20 H (0-5) /lpf 09/08/18 09/09/18 09/09/18 Range/Units 20:19 06:13 06:13 Lymph # (Auto) 1.16 L (1.2-3.4) K/uL Pettis # (Auto) (0.11-0.59) K/uL Chloride 112 H (98-107) mmol/L Total Bilirubin 1.6 H (0.2-1) mg/dl Direct Bilirubin (0-0.2) mg/dl AST 633 H 826 H (15-37) U/L ALT 873 H (12-78) U/L Alkaline Phosphatase 160 H (45-117) U/L Total Protein (6.4-8.2) gm/dl Albumin 3.1 L (3.4-5.0) gm/dl Lipase (73-393) U/L Ur Leukocyte Esterase (Negative) U Epithel Cells (Auto) (0-5) /lpf 09/09/18 09/09/18 09/09/18 Range/Units 06:13 11:56 13:12 Lymph # (Auto) (1.2-3.4) K/uL Pettis # (Auto) (0.11-0.59) K/uL Chloride (98-107) mmol/L Total Bilirubin 1.4 H (0.2-1) mg/dl Direct Bilirubin 0.5 H (0-0.2) mg/dl AST 506 H (15-37) U/L ALT 748 H (12-78) U/L Alkaline Phosphatase 152 H (45-117) U/L Total Protein 6.1 L (6.4-8.2) gm/dl Albumin 3.0 L (3.4-5.0) gm/dl Lipase 30294 H 8539 H (73-393) U/L Ur Leukocyte Esterase (Negative) U Epithel Cells (Auto) (0-5) /lpf (1) Pancreatitis Acute pancreatitis complication: unspecified Chronicity: acute Pancreatitis type: unspecified pancreatitis type Qualified Code(s): K85.90 - Acute pancreatitis without necrosis or infection, unspecified
--- NOTE | 2018-09-09 14:19 | GI REPORT ---
Patient Name: Jay Lewis Procedure Date: 09/09/2018 2:08 PM Date of : 1955 Admit Type: Inpatient Age: 63 Gender: Female Attending MD: Nona Villalobos DO Procedure: Upper GI endoscopy Providers: Nona Villalobos DO Referring MD: Charan Stoll Indications: Epigastric abdominal pain, Abdominal pain in the right upper quadrant Medicines: General Anesthesia Complications: No immediate complications. Estimated blood loss: Minimal. Estimated Blood Loss: Estimated blood loss was minimal. Procedure: Pre-Anesthesia Assessment: - Prior to the procedure, a History and Physical was performed, and patient medications, allergies and sensitivities were reviewed. The patient's tolerance of previous anesthesia was reviewed. - The risks and benefits of the procedure and the sedation options and risks were discussed with the patient. All questions were answered and informed consent was obtained. - Patient identification and proposed procedure were verified prior to the procedure by the physician, the nurse and the program clinician. The procedure was verified in the procedure room. - Pre-procedure physical examination revealed no contraindications to sedation. - ASA Grade Assessment: II - A patient with mild systemic disease. - After reviewing the risks and benefits, the patient was deemed in satisfactory condition to undergo the procedure. - The anesthesia plan was to use general anesthesia. - Immediately prior to administration of medications, the patient was re-assessed for adequacy to receive sedatives. - The heart rate, respiratory rate, oxygen saturations, blood pressure, adequacy of pulmonary ventilation, and response to care were monitored throughout the procedure. - The physical status of the patient was re-assessed after the procedure. After obtaining informed consent, the endoscope was passed under direct vision. Throughout the procedure, the patient's blood pressure, pulse, and oxygen saturations were monitored continuously. The scope was introduced through the mouth, and advanced to the third part of duodenum. The upper GI endoscopy was accomplished without difficulty. The patient tolerated the procedure well. Findings: The examined esophagus was normal. The Z-line was regular and was found 38 cm from the incisors. The entire examined stomach was normal. The examined duodenum was normal. Impression: - Normal esophagus. - Z-line regular, 38 cm from the incisors. - Normal examined duodenum. - Normal stomach. - No specimens collected. Recommendation: - Perform an upper endoscopic ultrasound (UEUS) today. Nona Villalobos D.O. Nona Villalobos, 09/09/2018 2:19:13 PM This report has been signed electronically. Note Initiated On: 09/09/2018 2:08 PM Number of Addenda: 0 I attest to the content of the Intraoperative Record and orders documented therein, exceptions below {[id number]}
--- NOTE | 2018-09-09 14:34 | GI REPORT ---
Patient Name: Jay Lewis Procedure Date: 09/09/2018 2:09 PM Date of : 1955 Admit Type: Inpatient Age: 63 Gender: Female Attending MD: Nona Villalobos DO Procedure: Upper EUS Providers: Nona Villalobos DO Referring MD: Zeyad Tim Indications: Suspected choledocholithiasis, Epigastric abdominal pain, Abdominal pain in the right upper quadrant Medicines: General Anesthesia Complications: No immediate complications. Estimated blood loss: Minimal. Estimated Blood Loss: Estimated blood loss was minimal. Procedure: Pre-Anesthesia Assessment: - Prior to the procedure, a History and Physical was performed, and patient medications, allergies and sensitivities were reviewed. The patient's tolerance of previous anesthesia was reviewed. - The risks and benefits of the procedure and the sedation options and risks were discussed with the patient. All questions were answered and informed consent was obtained. - Patient identification and proposed procedure were verified prior to the procedure by the physician, the nurse and the rn oncology. The procedure was verified in the procedure room. - Pre-procedure physical examination revealed no contraindications to sedation. - ASA Grade Assessment: II - A patient with mild systemic disease. - After reviewing the risks and benefits, the patient was deemed in satisfactory condition to undergo the procedure. - The anesthesia plan was to use general anesthesia. - Immediately prior to administration of medications, the patient was re-assessed for adequacy to receive sedatives. - The heart rate, respiratory rate, oxygen saturations, blood pressure, adequacy of pulmonary ventilation, and response to care were monitored throughout the procedure. - The physical status of the patient was re-assessed after the procedure. After obtaining informed consent, the endoscope was passed under direct vision. Throughout the procedure, the patient's blood pressure, pulse, and oxygen saturations were monitored continuously. The Scope was introduced through the mouth, and advanced to the second part of duodenum. The upper EUS was accomplished without difficulty. The patient tolerated the procedure well. Findings: ENDOSONOGRAPHIC FINDING: : There was no sign of significant endosonographic abnormality in the ampulla. Many small stones and a moderate amoun of sludge were visualized endosonographically in the gallbladder. They were hyperechoic. There was dilation in the common bile duct which measured up to 8 mm. Two stones were visualized endosonographically in the common bile duct. They were hyperechoic. Moderate hyperechoic material consistent with sludge was visualized endosonographically in the common bile duct. There was no sign of significant endosonographic abnormality in the entire pancreas. The pancreatic duct measured up to 2 mm in diameter. No masses, no cysts, the pancreatic duct was thin in caliber. There was no sign of significant endosonographic abnormality in the left adrenal gland. No adrenal gland enlargement was identified. There was no sign of significant endosonographic abnormality in the left lobe of the liver. Homogeneous parenchyma and no focal pathology were identified. Impression: - There was no sign of significant pathology in the ampulla. - Many small stones/sludege were visualized endosonographically in the gallbladder. - There was dilation in the common bile duct which measured up to 8 mm. - Two stones were visualized endosonographically in the common bile duct. - Hyperechoic material consistent with sludge was visualized endosonographically in the common bile duct. - There was no sign of significant pathology in the entire pancreas. - Endosonographic images of the left adrenal gland were unremarkable. - No specimens collected. Recommendation: - Perform an ERCP today. Nona Vlilalobos D.O. Nona Villalobos DO 09/09/2018 2:33:29 PM This report has been signed electronically. Note Initiated On: 09/09/2018 2:09 PM Number of Addenda: 0 I attest to the content of the Intraoperative Record and orders documented therein, exceptions below {[id number]}
[2018-09-09] MEDS ORDERED: ONDANSETRON INJ 2 MG/ML 2 ML VIAL IV PRN (15:12)
[2018-09-09] MEDS ORDERED: ATROPINE SULFATE 0.1 MG/ML 10ML SYR IV PRN (15:12)
[2018-09-09] MEDS ORDERED: PROMETHAZINE HCL 12.5 MG in SODIUM CHLORIDE 0.9% 50 ML IV PRN (15:12)
[2018-09-09] MEDS ORDERED: NALOXONE HCL 0.4 MG/1 ML VIAL/CARP IV PRN (15:12)
[2018-09-09] MEDS ORDERED: LABETALOL HCL IV 5 MG/ML 20ML IV PRN (15:12)
[2018-09-09] MEDS ORDERED: ePHEDrine sulfate 50 MG/ML AMP IV PRN (15:12)
[2018-09-09] MEDS ORDERED: FLUMAZENIL 0.1 MG/1 ML 10 ML VIAL IV PRN (15:12)
--- NOTE | 2018-09-09 15:19 | Post Operative Brief Note ---
Immediate Post Op Note v1 Date of Surgery September 09, 2018 Pre & Post Diagnosis Operation Date: 09/09/18 13:00 Pre-Op Diagnosis: ACALCULOUS CHOLECYSTITIS,PANCREATITIS Post-Op Diagnosis: ACALCULOUS CHOLECYSTITIS,PANCREATITIS Procedure Operation Date: 09/09/18 13:00 Actual Procedures p Esophagogastroduodenoscopy, Endoscopic Ultrasound, Endoscopic Retrograde Cholangiopancreatography, gallstone extraction, biliary stent placement, sphincterotomy - Nona Villalobos Surgeon Nona Villalobos Video Clerk none Estimated Blood Loss 5 Findings See Below (Biliary stricture, choledocholihiasis)
--- NOTE | 2018-09-09 15:19 | GI REPORT ---
Patient Name: Jay Lewis Procedure Date: 09/09/2018 2:11 PM Date of : 1955 Admit Type: Inpatient Age: 63 Gender: Female Attending MD: Nona Villalobos DO Procedure: ERCP Providers: Nona Villalobos DO Referring MD: Zeyad Tim Indications: Abdominal pain of suspected biliary origin, Elevated liver enzymes Medicines: General Anesthesia Complications: No immediate complications. Estimated blood loss: Minimal. Estimated Blood Loss: Estimated blood loss was minimal. Procedure: Pre-Anesthesia Assessment: - Prior to the procedure, a History and Physical was performed, and patient medications, allergies and sensitivities were reviewed. The patient's tolerance of previous anesthesia was reviewed. - The risks and benefits of the procedure and the sedation options and risks were discussed with the patient. All questions were answered and informed consent was obtained. - Patient identification and proposed procedure were verified prior to the procedure by the physician, the nurse and the cyber software engineer. The procedure was verified in the procedure room. - Pre-procedure physical examination revealed no contraindications to sedation. - ASA Grade Assessment: II - A patient with mild systemic disease. - After reviewing the risks and benefits, the patient was deemed in satisfactory condition to undergo the procedure. - The anesthesia plan was to use general anesthesia. - Immediately prior to administration of medications, the patient was re-assessed for adequacy to receive sedatives. - The heart rate, respiratory rate, oxygen saturations, blood pressure, adequacy of pulmonary ventilation, and response to care were monitored throughout the procedure. - The physical status of the patient was re-assessed after the procedure. After obtaining informed consent, the scope was passed under direct vision. Throughout the procedure, the patient's blood pressure, pulse, and oxygen saturations were monitored continuously. The SCOPE was introduced through the mouth, and advanced to the duodenum and used to inject contrast into the bile duct. The ERCP was accomplished without difficulty. The patient tolerated the procedure well. Findings: The trim setter helper film was normal. The esophagus was successfully intubated under direct vision without detailed examination of the pharynx, larynx, and associated structures, and upper GI tract. The upper GI tract was grossly normal. The major papilla was normal. The bile duct was deeply cannulated with the short-nosed traction sphincterotome and guidewire (PD not cannulated). Contrast was injected. I personally interpreted the bile duct images. Contrast extended to the hepatic ducts. The common bile duct contained filling defect(s) thought to be a stone and sludge. The lower third of the main bile duct contained a single segmental stenosis 10-15 mm in length. Biliary sphincterotomy was made with a monofilament Fusion OMNI sphincterotome using ERBE electrocautery. The sphincterotomy oozed blood. The lower third of the main bile duct was successfully dilated with an 8 mm balloon dilator. The biliary tree was swept with a 12 and a 15 mm balloon starting at the bifurcation several times. Sludge was swept from the duct. Many small pale pigmented stones were removed. One 10 Fr by 9 cm biliary stent with a single external flap and a single internal flap was placed 9 cm into the common bile duct. Dark, Thick bile and stone material flowed through the stent. The stent was in good position. Indomethacin 100 mg was given via suppository to decrease the risk of post-ERCP pancreatitis (PEP). The endoscope was withdrawn from the patient. Impression: - A single segmental biliary stricture was found in the lower third of the main bile duct. The stricture was inflammatory. - Choledocholithiasis was found. Partial removal was accomplished with biliary sphincterotomy; a stent was inserted. - A biliary sphincterotomy was performed. - The lower third of the main bile duct was successfully dilated. - One biliary stent was placed into the common bile duct. - Indomethacin given to decrease risk of post-ERCP pancreatitis. Recommendation: - Return patient to [facility] for ongoing care. - Clear liquid diet. - Refer to a surgeon. - Repeat ERCP in 6 weeks to remove stent. Nona Villalobos D.O. Nona Villalobos DO 09/09/2018 3:18:56 PM This report has been signed electronically. Note Initiated On: 09/09/2018 2:11 PM Number of Addenda: 0 I attest to the content of the Intraoperative Record and orders documented therein, exceptions below {[id number]}
[2018-09-09] MEDS ORDERED: NEOSTIGMINE METHYLSULFATE 5 MG/5 ML SYR ONE (15:29)
[2018-09-09] MEDS ORDERED: GLYCOPYRROLATE 0.2 MG/ML VIAL ONE (15:29)
--- NOTE | 2018-09-09 15:46 | Fluoroscopy Report ---
[place] ERCP biliary ductal CLINICAL HISTORY: 63 years-old Female presenting with EXPLORE DUCTS. TECHNIQUE: Fluoroscopy was provided for endoscopic retrograde cholangiopancreatography. 15 fluoroscop ic image(s) recorded. COMPARISON: MRCP from the previous day. FINDINGS: Procedure: An endoscope projects over the descending duodenum with a microcatheter inserted into the common bile duct. The common duct was opacified with contrast and noted to be dilated with filling de fects in the region of the distal duct. A balloon was used to clear the calculi. Subsequently, the in trahepatic ducts were opacified with additional filling defects in the region of the proximal common duct. A portion of the cystic duct and pancreatic neck also opacified with contrast indicating an vivian bstructed cystic duct. A plastic stent was placed at the conclusion of the procedure. Peritoneal spillage: No evidence of peritoneal spillage of contrast. Extrahepatic bile ducts: Dilated common duct with the later cholelithiasis. Contrast extends into the small bowel. Intrahepatic bile ducts: Minimal intrahepatic bile duct dilatation. Fluoroscopy dosage (mGy): 40.67. Fluoroscopy time: 179.6 seconds. Number or time of fluoroscopic spot images: 0. IMPRESSION: Extrahepatic biliary ductal dilatation secondary to choledocholithiasis with balloon clearance and pl acement of a plastic common duct stent. Electronically signed by: Boubacar Dewey M.D. 09/09/2018 3:45 PM
[2018-09-09] MEDS: fentaNYL citrate 100 MCG/2 ML VIAL IV PRN ×2 (15:49→15:56)
--- NOTE | 2018-09-09 16:13 | Anesthesiology Progress Note ---
Date of Service September 09, 2018 Anesthesia Post Procedure Vital Signs Vital Signs: Temp Pulse Pulse Pulse Resp BP BP 09/09/18 16:00 46 L 13 139/80 09/09/18 15:50 48 L 14 157/82 H 09/09/18 15:40 47 L 15 157/79 H 09/09/18 15:30 59 L 14 149/81 H 09/09/18 15:22 36 C L 69 18 146/90 H 09/09/18 13:38 36.8 C 66 16 164/85 H 09/09/18 07:45 36.9 C 62 16 138/88 09/08/18 23:57 37.3 C 59 L 14 158/74 H 09/08/18 23:00 37 C 74 16 166/97 H 09/08/18 22:17 09/08/18 22:10 87 20 162/83 H 09/08/18 21:49 09/08/18 21:37 60 14 183/92 H 09/08/18 21:00 62 16 158/102 H 09/08/18 20:16 72 16 177/95 H 09/08/18 19:00 52 L 20 186/85 H 09/08/18 17:59 36.6 C 67 20 163/88 H Pulse Ox 09/09/18 16:00 96 09/09/18 15:50 96 09/09/18 15:40 100 09/09/18 15:30 100 09/09/18 15:22 98 09/09/18 13:38 95 09/09/18 07:45 95 09/08/18 23:57 97 09/08/18 23:00 95 09/08/18 22:17 94 09/08/18 22:10 4 L 09/08/18 21:49 89 L 09/08/18 21:37 96 09/08/18 21:00 94 09/08/18 20:16 96 09/08/18 19:00 98 09/08/18 17:59 98 Pain Intensity Abdomen: Pain Intensity: 4 Notes Mental Status: alert / awake / arousable Patient Amnestic to Procedure: Yes Nausea / Vomiting: adequately controlled Pain: adequately controlled Airway Patency, RR, SpO2: stable & adequate BP & HR: stable & adequate Hydration State: stable & adequate Anesthetic Complications: no major complications apparent
--- NOTE | 2018-09-09 16:29 | Surgery Consultation ---
Date of Consultation September 09, 2018 Assessment & Plan (1) Choledocholithiasis: 63 year-old female who presented to emergency department with upper abdominal pain, nausea, vomiting x 1 week. Initial labs showed elevated t. bili, lfts, and lipase. US showed gallbladder sludge, wall thickening, and dilated CBD. MRCP showed dilated CBD but no definitive evidence of biliary obstrucition. ERCP today showed biliary stricture (likely inflammatory) and choledocholithiasis. She is now s/p biliary stent placement. Abdomen is soft, tender in RUQ but no peritonitis. Plan: Discussed with patient the indication for cholecystectomy as there is a 20% chance of recurrence of biliary obstruction and pancreatitis. Discussed laparoscopic cholecystectomy during this admission but would like to see if her labs improve specifically her lipase in regards to her pancreatitis. May have clear liquids today NPO after midnight Continue medical management Will repeat am labs and determine timing of cholecystectomy with patient will follow along Dr. Roach has seen and examined pt, agrees with above. (2) Gallstone pancreatitis: Plan as above Supervising Physician Co-Signing Physician Notes I have seen and evaluated the patient and reviewed the medical records. I agree with the documentation above as written by Asha Aguiar PA-C. History of Present Illness Reason for Consultation: Choledocholithiasis with cholangitis and cholecystitis Requesting Physician: Andre Farrar Attending Physician: Charan Orellana MD History of Present Illness Jay is a pleasant 63 year-old female who presented to emergency room for increasing abdominal discomfort, nausea, and vomiting. She states she had a similar episode of pain and nausea and vomiting about 1 week ago while she was in [place] but thought it was just the stomach bug as rest of her family was sick at the time. She states she felt better after vomiting but then a few days later had increasing pain, nausea and vomiting which did not resolve. She states she had normal bowel movement morning which was formed but orange in color. Denies of any fever, chills, sweats, chest pain, shortness of breath, blood in stools. ER work-up included labs which showed no leukocytosis. t. bili elevated at 2.1. AST 633, ALT 499, Alk 149, Lipase 3582. US showed gallbladder wall thickening and gallbladder sludge. Dilated common bile duct with no evidence of choledochlithiasis. MRCP showed gallbladder wall thickening and dilated common bile duct again at 1.2 cm but no definitive evidence of biliary obstruction. She went for EGD/EUS/ERCP today which showed biliary stricture and choledocholithaisis in which she had sphincterotomy and biliary stent placement by Dr. Villlaobos. Allergies Allergy/AdvReac Type Severity Reaction Status Date / Time Sulfa (Sulfonamide Allergy Unknown UNKNOWN Verified 09/08/18 19:16 Antibiotics) Home Medications Home Medications Medication Instructions Recorded Confirmed Type No Known Home Medications 09/08/18 09/08/18 History Patient History Medical History Obesity Surgical History No significant past surgical history H/O colonoscopy Social History Preferred Language: Malagasy Communication Ability: Effective [employer]cycle [employer] Officer Required: No Beliefs That Will Affect Care: None marital status: Current Living Situation: Spouse Other Information That Helps Us Care for You: No Feels Safe at Home: Yes Safety Concerns: Feels Safe At This Time Smoking Status: Never smoker Hx Alcohol Use: Yes Hx Substance Use: No Review of Systems Constitutional: as per Subjective / HPI Physical Exam Vital Signs (Past 24 Hours): Last Vital Signs Temp 36 C L 09/09/18 15:22 Pulse 58 L 09/09/18 16:10 Resp 15 09/09/18 16:10 BP 157/84 H 09/09/18 16:10 Pulse Ox 97 09/09/18 16:10 Constitutional: WD/WN, vitals as above no acute distress and not ill appearing Eyes: mildly icteric Respiratory: normal respiratory effort; no respiratory distress Gastrointestinal (Abdomen): Inspection/Auscultation: abdomen not distended Percussion/Palpation: + abdomen tender (RUQ on deep palpation) and abdomen soft; no guarding and abdomen not rigid Skin: no rashes, warm and dry Psychiatric: A+Ox3, euthymic affect Results & Data Laboratory Results 09/09/18 09/09/18 09/09/18 Range/Units 13:12 11:56 06:13 WBC (4.8-10.8) K/uL RBC (4.2-5.4) M/uL Hgb (12.0-16.0) g/dL Hct (37-47) % MCV (80-100) fL MCH (25-34) pg MCHC (32-36) g/dL RDW Std Deviation (36.4-46.3) fL RDW Coeff of Antoine (11.5-14.5) % Plt Count (130-400) K/uL MPV (7.4-10.4) fL Immature Gran % (Auto) % Neut % (Auto) % Lymph % (Auto) % [place] % (Auto) % Eos % (Auto) % Baso % (Auto) % Immature Gran # (Auto) (0.00-0.02) K/uL Neut # (Auto) (1.4-6.5) K/uL Lymph # (Auto) (1.2-3.4) K/uL [place] # (Auto) (0.11-0.59) K/uL Eos # (Auto) (0-0.5) K/uL Baso # (Auto) (0-0.2) K/uL PT INR APTT (21.0-31.0) Seconds PTT Ratio Sodium (136-145) mmol/L Potassium (3.5-5.1) mmol/L Chloride (98-107) mmol/L Carbon Dioxide (21-32) mmol/L Anion Gap (3-11) BUN (7-18) mg/dl Creatinine (0.6-1.2) mg/dl Est Cr Clr Drug Dosing ml/min Est GFR ( Amer) Est GFR (Non-Af Amer) BUN/Creatinine Ratio (10-20) Glucose (70-99) mg/dl Calcium (8.5-10.1) mg/dl Magnesium (1.8-2.4) mg/dl Total Bilirubin 1.4 H (0.2-1) mg/dl Direct Bilirubin 0.5 H TNP AST 506 H TNP (15-37) U/L ALT 748 H (12-78) U/L Alkaline Phosphatase 152 H (45-117) U/L Troponin I (0-0.045) ng/ml Total Protein 6.1 L (6.4-8.2) gm/dl Albumin 3.0 L (3.4-5.0) gm/dl Globulin (2.5-4.0) gm/dl Albumin/Globulin Ratio (0.9-2) Lipase 8539 H 80747 H (73-393) U/L Urine Color Urine Appearance (Clear) Urine pH (4.5-7.5) Ur Specific [place] (1.000-1.030) Urine Protein (Negative) Urine Glucose (UA) (Negative) Urine Ketones (Negative) Urine Blood (Negative) Urine Nitrite (Negative) Urine Bilirubin (Negative) Urine Urobilinogen (Negative) Ur Leukocyte Esterase (Negative) Urine WBC (Auto) (0-5) /hpf Urine RBC (Auto) (0-4) /hpf U Hyaline Cast (Auto) (0-5) /lpf U Epithel Cells (Auto) (0-5) /lpf Urine Bacteria (Auto) (Negative) Hepatitis C Ab Screen (Neg) 09/09/18 09/09/18 09/09/18 Range/Units 06:13 06:13 06:13 WBC 6.21 (4.8-10.8) K/uL RBC 5.00 (4.2-5.4) M/uL Hgb 14.2 (12.0-16.0) g/dL Hct 42.0 (37-47) % MCV 84.0 (80-100) fL MCH 28.4 (25-34) pg MCHC 33.8 (32-36) g/dL RDW Std Deviation 42.4 (36.4-46.3) fL RDW Coeff of Antoine 13.9 (11.5-14.5) % Plt Count 237 (130-400) K/uL MPV 9.4 (7.4-10.4) fL Immature Gran % (Auto) 0.3 % Neut % (Auto) 74.7 % Lymph % (Auto) 18.7 % [place] % (Auto) 5.0 % Eos % (Auto) 1.1 % Baso % (Auto) 0.2 % Immature Gran # (Auto) 0.02 (0.00-0.02) K/uL Neut # (Auto) 4.64 (1.4-6.5) K/uL Lymph # (Auto) 1.16 L (1.2-3.4) K/uL [place] # (Auto) 0.31 (0.11-0.59) K/uL Eos # (Auto) 0.07 (0-0.5) K/uL Baso # (Auto) 0.01 (0-0.2) K/uL PT 10.7 INR 1.0 APTT 23.9 (21.0-31.0) Seconds PTT Ratio 0.9 Sodium 143 (136-145) mmol/L Potassium 4.0 (3.5-5.1) mmol/L Chloride 112 H (98-107) mmol/L Carbon Dioxide 26 (21-32) mmol/L Anion Gap 5.0 (3-11) BUN 11 (7-18) mg/dl Creatinine 0.84 (0.6-1.2) mg/dl Est Cr Clr Drug Dosing 76.2 ml/min Est GFR ( Amer) 86.9 Est GFR (Non-Af Amer) 75.0 BUN/Creatinine Ratio 12.8 (10-20) Glucose 98 (70-99) mg/dl Calcium 8.6 (8.5-10.1) mg/dl Magnesium (1.8-2.4) mg/dl Total Bilirubin 1.6 H (0.2-1) mg/dl Direct Bilirubin AST 826 H (15-37) U/L ALT 873 H (12-78) U/L Alkaline Phosphatase 160 H (45-117) U/L Troponin I (0-0.045) ng/ml Total Protein 6.4 (6.4-8.2) gm/dl Albumin 3.1 L (3.4-5.0) gm/dl Globulin 3.3 (2.5-4.0) gm/dl Albumin/Globulin Ratio 0.9 (0.9-2) Lipase (73-393) U/L Urine Color Urine Appearance (Clear) Urine pH (4.5-7.5) Ur Specific [place] (1.000-1.030) Urine Protein (Negative) Urine Glucose (UA) (Negative) Urine Ketones (Negative) Urine Blood (Negative) Urine Nitrite (Negative) Urine Bilirubin (Negative) Urine Urobilinogen (Negative) Ur Leukocyte Esterase (Negative) Urine WBC (Auto) (0-5) /hpf Urine RBC (Auto) (0-4) /hpf U Hyaline Cast (Auto) (0-5) /lpf U Epithel Cells (Auto) (0-5) /lpf Urine Bacteria (Auto) (Negative) Hepatitis C Ab Screen (Neg) 09/08/18 09/08/18 09/08/18 Range/Units 20:19 20:19 20:19 WBC (4.8-10.8) K/uL RBC (4.2-5.4) M/uL Hgb (12.0-16.0) g/dL Hct (37-47) % MCV (80-100) fL MCH (25-34) pg MCHC (32-36) g/dL RDW Std Deviation (36.4-46.3) fL RDW Coeff of Antoine (11.5-14.5) % Plt Count (130-400) K/uL MPV (7.4-10.4) fL Immature Gran % (Auto) % Neut % (Auto) % Lymph % (Auto) % [place] % (Auto) % Eos % (Auto) % Baso % (Auto) % Immature Gran # (Auto) (0.00-0.02) K/uL Neut # (Auto) (1.4-6.5) K/uL Lymph # (Auto) (1.2-3.4) K/uL [place] # (Auto) (0.11-0.59) K/uL Eos # (Auto) (0-0.5) K/uL Baso # (Auto) (0-0.2) K/uL PT 10.6 INR 1.0 APTT (21.0-31.0) Seconds PTT Ratio Sodium (136-145) mmol/L Potassium 3.8 (3.5-5.1) mmol/L Chloride (98-107) mmol/L Carbon Dioxide (21-32) mmol/L Anion Gap (3-11) BUN (7-18) mg/dl Creatinine (0.6-1.2) mg/dl Est Cr Clr Drug Dosing ml/min Est GFR ( Amer) Est GFR (Non-Af Amer) BUN/Creatinine Ratio (10-20) Glucose (70-99) mg/dl Calcium (8.5-10.1) mg/dl Magnesium 2.3 (1.8-2.4) mg/dl Total Bilirubin (0.2-1) mg/dl Direct Bilirubin AST 633 H (15-37) U/L ALT (12-78) U/L Alkaline Phosphatase (45-117) U/L Troponin I (0-0.045) ng/ml Total Protein (6.4-8.2) gm/dl Albumin (3.4-5.0) gm/dl Globulin (2.5-4.0) gm/dl Albumin/Globulin Ratio (0.9-2) Lipase (73-393) U/L Urine Color Urine Appearance (Clear) Urine pH (4.5-7.5) Ur Specific [place] (1.000-1.030) Urine Protein (Negative) Urine Glucose (UA) (Negative) Urine Ketones (Negative) Urine Blood (Negative) Urine Nitrite (Negative) Urine Bilirubin (Negative) Urine Urobilinogen (Negative) Ur Leukocyte Esterase (Negative) Urine WBC (Auto) (0-5) /hpf Urine RBC (Auto) (0-4) /hpf U Hyaline Cast (Auto) (0-5) /lpf U Epithel Cells (Auto) (0-5) /lpf Urine Bacteria (Auto) (Negative) Hepatitis C Ab Screen Neg (Neg) 09/08/18 09/08/18 09/08/18 Range/Units 20:15 19:11 19:11 WBC (4.8-10.8) K/uL RBC (4.2-5.4) M/uL Hgb (12.0-16.0) g/dL Hct (37-47) % MCV (80-100) fL MCH (25-34) pg MCHC (32-36) g/dL RDW Std Deviation (36.4-46.3) fL RDW Coeff of Antoine (11.5-14.5) % Plt Count (130-400) K/uL MPV (7.4-10.4) fL Immature Gran % (Auto) % Neut % (Auto) % Lymph % (Auto) % [place] % (Auto) % Eos % (Auto) % Baso % (Auto) % Immature Gran # (Auto) (0.00-0.02) K/uL Neut # (Auto) (1.4-6.5) K/uL Lymph # (Auto) (1.2-3.4) K/uL [place] # (Auto) (0.11-0.59) K/uL Eos # (Auto) (0-0.5) K/uL Baso # (Auto) (0-0.2) K/uL PT Cancelled INR Cancelled APTT (21.0-31.0) Seconds PTT Ratio Sodium 142 (136-145) mmol/L Potassium (3.5-5.1) mmol/L Chloride 109 H (98-107) mmol/L Carbon Dioxide 27 (21-32) mmol/L Anion Gap 6.0 (3-11) BUN 11 (7-18) mg/dl Creatinine 0.83 (0.6-1.2) mg/dl Est Cr Clr Drug Dosing 78.0 ml/min Est GFR ( Amer) 88.2 Est GFR (Non-Af Amer) 76.1 BUN/Creatinine Ratio 13.3 (10-20) Glucose 94 (70-99) mg/dl Calcium 9.3 (8.5-10.1) mg/dl Magnesium (1.8-2.4) mg/dl Total Bilirubin 2.1 H (0.2-1) mg/dl Direct Bilirubin AST (15-37) U/L ALT 499 H (12-78) U/L Alkaline Phosphatase 149 H (45-117) U/L Troponin I < 0.015 (0-0.045) ng/ml Total Protein 7.7 (6.4-8.2) gm/dl Albumin 3.7 (3.4-5.0) gm/dl Globulin 4.0 (2.5-4.0) gm/dl Albumin/Globulin Ratio 0.9 (0.9-2) Lipase 3582 H (73-393) U/L Urine Color Yellow Urine Appearance Clear (Clear) Urine pH 7.5 (4.5-7.5) Ur Specific [place] 1.007 (1.000-1.030) Urine Protein Negative (Negative) Urine Glucose (UA) Negative (Negative) Urine Ketones Negative (Negative) Urine Blood Negative (Negative) Urine Nitrite Negative (Negative) Urine Bilirubin Negative (Negative) Urine Urobilinogen Negative (Negative) Ur Leukocyte Esterase 1+ H (Negative) Urine WBC (Auto) 1-5 (0-5) /hpf Urine RBC (Auto) 0-4 (0-4) /hpf U Hyaline Cast (Auto) 1-5 (0-5) /lpf U Epithel Cells (Auto) 10-20 H (0-5) /lpf Urine Bacteria (Auto) Negative (Negative) Hepatitis C Ab Screen (Neg) 09/08/18 Range/Units 19:11 WBC 7.62 (4.8-10.8) K/uL RBC 5.36 (4.2-5.4) M/uL Hgb 15.4 (12.0-16.0) g/dL Hct 45.0 (37-47) % MCV 84.0 (80-100) fL MCH 28.7 (25-34) pg MCHC 34.2 (32-36) g/dL RDW Std Deviation 42.4 (36.4-46.3) fL RDW Coeff of Antoine 13.8 (11.5-14.5) % Plt Count 246 (130-400) K/uL MPV 9.8 (7.4-10.4) fL Immature Gran % (Auto) 0.3 % Neut % (Auto) 68.2 % Lymph % (Auto) 21.5 % [place] % (Auto) 8.8 % Eos % (Auto) 0.9 % Baso % (Auto) 0.3 % Immature Gran # (Auto) 0.02 (0.00-0.02) K/uL Neut # (Auto) 5.20 (1.4-6.5) K/uL Lymph # (Auto) 1.64 (1.2-3.4) K/uL [place] # (Auto) 0.67 H (0.11-0.59) K/uL Eos # (Auto) 0.07 (0-0.5) K/uL Baso # (Auto) 0.02 (0-0.2) K/uL PT INR APTT (21.0-31.0) Seconds PTT Ratio Sodium (136-145) mmol/L Potassium (3.5-5.1) mmol/L Chloride (98-107) mmol/L Carbon Dioxide (21-32) mmol/L Anion Gap (3-11) BUN (7-18) mg/dl Creatinine (0.6-1.2) mg/dl Est Cr Clr Drug Dosing ml/min Est GFR ( Amer) Est GFR (Non-Af Amer) BUN/Creatinine Ratio (10-20) Glucose (70-99) mg/dl Calcium (8.5-10.1) mg/dl Magnesium (1.8-2.4) mg/dl Total Bilirubin (0.2-1) mg/dl Direct Bilirubin AST (15-37) U/L ALT (12-78) U/L Alkaline Phosphatase (45-117) U/L Troponin I (0-0.045) ng/ml Total Protein (6.4-8.2) gm/dl Albumin (3.4-5.0) gm/dl Globulin (2.5-4.0) gm/dl Albumin/Globulin Ratio (0.9-2) Lipase (73-393) U/L Urine Color Urine Appearance (Clear) Urine pH (4.5-7.5) Ur Specific [place] (1.000-1.030) Urine Protein (Negative) Urine Glucose (UA) (Negative) Urine Ketones (Negative) Urine Blood (Negative) Urine Nitrite (Negative) Urine Bilirubin (Negative) Urine Urobilinogen (Negative) Ur Leukocyte Esterase (Negative) Urine WBC (Auto) (0-5) /hpf Urine RBC (Auto) (0-4) /hpf U Hyaline Cast (Auto) (0-5) /lpf U Epithel Cells (Auto) (0-5) /lpf Urine Bacteria (Auto) (Negative) Hepatitis C Ab Screen (Neg) Diagnostic Findings US gallbladder HISTORY: 63 years-old Female ruq pain, n/v acute right upper quadrant abdominal pain with nausea and vomiting COMPARISON: Chest radiograph of same day TECHNIQUE: Multiple real-time sonographic images of the abdominal right upper quadrant were obtained assessing grayscale appearance and color flow FINDINGS: Imaged pancreas appears normal. There may be mild intrahepatic biliary ductal dilation. There is nonspecific slightly increased echogenicity of the liver. No evidence of ascites or cirrhosis. Mild gallbladder distention. Suggestion of trace pericholecystic fluid versus a meniscal body wall which measures the upper limits of normal at 3 mm. Sonographic Alvarado sign reported as negative. Common bile duct is dilated measuring 1.4 cm. Trace gallbladder sludge without shadowing cholelithiasis. Imaged right kidney demonstrates no renal calculi. Mild pelviectasis inc identally noted. IMPRESSION: 1. Mild gallbladder distention with gallbladder sludge. Additionally, the gallbladder wall measures within the upper limits of normal and there is suggestion of trace pericholecystic edema versus edematous gallbladder wall. Correlate clinically to exclude acute acalculus cholecystitis. 2. Dilated common bile duct without obstructing biliary stone or lesion identified on these images. Correlate clinically and with laboratory analysis to exclude obstructive etiology. 3. Suggestion of hepatic steatosis. MR MRCP HISTORY: 63 years-old Female pancreatitis, dilated CBD acute right upper quadrant abdominal pain with nausea COMPARISON: Right upper quadrant abdominal ultrasound of same day TECHNIQUE: MRCP according to institutional protocol was obtained without the use of contrast. FINDINGS: Lower chest appears unremarkable. There is suggestion of multiple bilateral renal sinus cysts, left greater than right. No aortic aneurysm or adenopathy. No bowel dilation. Liver, spleen, pancreas and adrenal glands appear grossly unremarkable. Abdominal wall and bony structures also are unremarkable. Study is mildly motion degraded. Dilated common bile duct measures up to 12 mm transversely. No significant intrahepatic biliary ductal dilation. Ill-defined foci noted within the distribution the distal common bile duct as seen on image 94 series 5 and image 12 series 3 are likely artifactual. No definitive choledocholithiasis identified. No filling defect seen within the visualized cystic duct. Gallbladder is distended with mildly thickened is edematous wall. No cholelithiasis identified. Trace fluid about the aditya hepatis. Pancreatic duct appears normal. No evidence of pancreatic divisum. IMPRESSION: 1. Gallbladder distention with edematous mildly thickened gallbladder wall redemonstrated. No associated cholelithiasis identified. Correlate clinically to exclude acalculus cholecystitis. 2. Dilation of the common bile duct, 1.2 cm redemonstrated. Ill-defined foci within the distribution of the distal common bile duct are likely artifactual with choledocholithiasis considered less likely. 3. Trace fluid noted about the aditya hepatis.
[2018-09-09] MEDS ORDERED: MoRPHine SULFATE 2 MG/ML CARP IV PRN (17:49)
[2018-09-09] MEDS ORDERED: MoRPHine SULFATE 4 MG/ML 1 ML CARP\\VIAL IV PRN (17:50)
[2018-09-09] MEDS ORDERED: LACTATED RINGER'S 1,000 ML IV SCH (18:00)
[2018-09-09] MEDS ORDERED: MoRPHine SULFATE 4 MG/ML 1 ML CARP\\VIAL ONE (18:13)
[2018-09-09] MEDS: ACETAMINOPHEN 1,000 MG/100 ML VIAL IV SCH (20:50)
--- NOTE | 2018-09-10 01:54 | Emergency Department Note ---
Entered by Dior Burleson acting as a scribe for Adelaida Angel DO History of Present Illness General Chief complaint: Abdominal Pain Stated complaint: PAIN IN STOMACH Time Seen by Provider: 09/08/18 18:03 Source: patient Mode of arrival: ambulatory Limitations: no limitations History of Present Illness Provider complaint: GI assessment Onset (ago): day(s) 4 Location: abdomen Pain Consistency: + other (episodes) Maximum Pain Intensity: 9 Quality: + other (GI) Associated symptoms: + denies other symptoms (melena, diarrhea, hematochezia), + cough, + fever/chills, + nausea/vomiting and + other (abd pain) The patient is a 63 year old female who presents to the Emergency Room for a GI assessment. The patient reports that she was nauseous and bloated after dinner Wednesday night. She states that this lasted for 4 hours and then had an episode of emesis which did alleviate her symptoms. She reports that the following 2 days she felt baseline until this morning. She notes that she woke up nauseous again today and with right upper quadrant abdominal pain. She reports that she has had difficulty standing and sitting. She also states that she has had chills, a cough, and an orange formed bowel movement this morning. She denies any melena, diarrhea, or hematochezia. She notes that 1.5 weeks ago she was visiting family in [place] and that they were running high fevers. However she came home and took [id number] cold and cough medication and felt like she was improved. Home Medications Home Medications Medication Instructions Recorded Confirmed Type No Known Home Medications 09/08/18 09/08/18 History Allergies Allergy/AdvReac Type Severity Reaction Status Date / Time Sulfa (Sulfonamide Allergy Unknown UNKNOWN Verified 09/08/18 19:16 Antibiotics) Past Med/Surg History Medical History Obesity Surgical History No significant past surgical history H/O colonoscopy Social History Preferred Language: Swazi Communication Ability: Effective Operating Room Orderly Required: No Beliefs That Will Affect Care: None marital status: Current Living Situation: Spouse Other Information That Helps Us Care for You: No Feels Safe at Home: Yes Safety Concerns: Feels Safe At This Time Smoking Status: Never smoker Hx Alcohol Use: Yes Hx Substance Use: No Review of Systems See HPI for pertinent positives & negatives. and A total of 10 systems reviewed and were otherwise negative Physical Exam Vital Signs Vital Signs - 24 hr 09/09/18 07:45 09/09/18 13:38 09/09/18 15:22 Temperature 36.9 C 36.8 C 36 C L Temperature Source Oral Oral Temporal Artery Scan Pulse Rate [Apical] 62 69 Pulse Rate [Left Finger] 66 Pulse Rhythm [Apical] Regular Regular Pulse Strength [Apical] Normal Normal Respiratory Rate 16 16 18 Respiratory Effort / Characteristics Non-Labored Spontaneous Non-Labored Spontaneous Non-Labored Respiratory Depth Normal Normal Normal Respiratory Pattern Regular Regular Regular Blood Pressure [Left Arm] Blood Pressure [Right Arm] 138/88 164/85 H 146/90 H Blood Pressure Mean [Left Arm] Blood Pressure Mean [Right Arm] 104 111 108 Blood Pressure Position [Left Arm] Blood Pressure Position [Right Arm] Lying Lying Pulse Oximetry 95 95 98 Oxygen Delivery Method Room Air Room Air Oxymask Oxygen Flow Rate 10 09/09/18 15:30 09/09/18 15:40 09/09/18 15:50 Temperature Temperature Source Pulse Rate [Apical] 59 L 47 L 48 L Pulse Rate [Left Finger] Pulse Rhythm [Apical] Regular Regular Regular Pulse Strength [Apical] Normal Normal Normal Respiratory Rate 14 15 14 Respiratory Effort / Characteristics Non-Labored Non-Labored Non-Labored Respiratory Depth Normal Normal Normal Respiratory Pattern Regular Regular Regular Blood Pressure [Left Arm] Blood Pressure [Right Arm] 149/81 H 157/79 H 157/82 H Blood Pressure Mean [Left Arm] Blood Pressure Mean [Right Arm] 103 105 107 Blood Pressure Position [Left Arm] Blood Pressure Position [Right Arm] Lying Lying Lying Pulse Oximetry 100 100 96 Oxygen Delivery Method Oxymask Oxymask Nasal Cannula Oxygen Flow Rate 10 10 2 09/09/18 16:00 09/09/18 16:10 09/09/18 16:40 Temperature 37 C Temperature Source Oral Pulse Rate [Apical] 46 L 58 L Pulse Rate [Left Finger] 55 L Pulse Rhythm [Apical] Regular Regular Pulse Strength [Apical] Normal Normal Respiratory Rate 13 15 14 Respiratory Effort / Characteristics Non-Labored Non-Labored Non-Labored Spontaneous Respiratory Depth Normal Normal Normal Respiratory Pattern Regular Regular Regular Blood Pressure [Left Arm] Blood Pressure [Right Arm] 139/80 157/84 H 148/80 H Blood Pressure Mean [Left Arm] Blood Pressure Mean [Right Arm] 99 108 102 Blood Pressure Position [Left Arm] Blood Pressure Position [Right Arm] Lying Lying Pulse Oximetry 96 97 92 Oxygen Delivery Method Nasal Cannula Nasal Cannula Room Air Oxygen Flow Rate 2 2 09/09/18 17:00 09/09/18 17:22 09/09/18 17:50 Temperature 36.8 C 36.5 C Temperature Source Oral Axillary Pulse Rate [Apical] Pulse Rate [Left Finger] 48 L 49 L Pulse Rhythm [Apical] Pulse Strength [Apical] Respiratory Rate 20 19 Respiratory Effort / Characteristics Non-Labored Spontaneous Non-Labored Spontaneous Respiratory Depth Normal Normal Respiratory Pattern Regular Regular Blood Pressure [Left Arm] Blood Pressure [Right Arm] 159/84 H 160/85 H Blood Pressure Mean [Left Arm] Blood Pressure Mean [Right Arm] 109 110 Blood Pressure Position [Left Arm] Blood Pressure Position [Right Arm] Lying Pulse Oximetry 93 95 Oxygen Delivery Method Room Air Room Air Room Air Oxygen Flow Rate 09/09/18 18:51 09/09/18 19:41 09/09/18 23:27 Temperature 36.8 C 36.8 C 36.8 C Temperature Source Oral Oral Oral Pulse Rate [Apical] Pulse Rate [Left Finger] 50 L 49 L 47 L Pulse Rhythm [Apical] Pulse Strength [Apical] Respiratory Rate 19 18 14 Respiratory Effort / Characteristics Respiratory Depth Respiratory Pattern Blood Pressure [Left Arm] 153/81 H Blood Pressure [Right Arm] 147/87 H 144/76 H Blood Pressure Mean [Left Arm] 105 Blood Pressure Mean [Right Arm] 107 98 Blood Pressure Position [Left Arm] Lying Blood Pressure Position [Right Arm] Lying Lying Pulse Oximetry 94 93 93 Oxygen Delivery Method Room Air Room Air Room Air Oxygen Flow Rate GENERAL: alert, uncomfortable appearing, well nourished, mild distress, non- toxic EYE EXAM: normal conjunctiva, PERRL and EOM's grossly intact OROPHARYNX: no exudate, no erythema, lips, buccal mucosa, and tongue normal and mucous membranes are moist NECK: supple, no nuchal rigidity, no adenopathy, non-tender LUNGS: Clear to auscultation. Normal chest wall mechanics, no w/r/r HEART: no murmurs, S1 normal and S2 normal ABDOMEN: abdomen soft, normo-active bowel sounds, no masses, no rebound or guarding. Right upper quadrant tenderness. BACK: Back is symmetrical on inspection and there is no deformity, no midline tenderness, no CVA tenderness. SKIN: no rashes and no bruising UPPER EXTREMITIES: upper extremities are grossly normal. FROM, nml pulses b/l. LOWER EXTREMITIES: No pitting edema. FROM, nml pulses b/l. NEURO EXAM: Normal sensorium, cranial nerves II-XII grossly intact, normal speech, no gross weakness of arms, no gross weakness of legs. Gross sensation intact. Course 1806: The patient was evaluated in room A2, and a complete history and physical examination were performed. 2027: I updated the patient. She states that the pain is better but is still nauseated. 2047: I reviewed the patient's case with Dr. Stone - [facility]. He will evaluate the patient for further management. 2050: I updated the patient. She is agreeable with the treatment plan. Administered Medications Pantoprazole Sodium 40 mg/ (Syringe) 10 mls @ 5 mls/min IV DAILY@1100 [facility] Stop: 10/09/18 10:59 Last Admin: 09/09/18 10:54 Dose: 5 mls/min Documented by: [id number] Piperacillin Sod/Tazobactam (Sod 3.375 gm/ Dextrose) 115 mls @ 28.75 mls/hr IV Q8H [facility]; Protocol Stop: 09/19/18 05:59 Last Infusion: 09/09/18 22:13 Dose: 0 mls/hr Documented by: [id number] Infusion: 09/09/18 21:13 Dose: 28.8 mls/hr Documented by: [id number] Infusion: 09/09/18 20:50 Dose: 0 mls/hr Documented by: [id number] Admin: 09/09/18 18:01 Dose: 28.8 mls/hr Documented by: [id number] Infusion: 09/09/18 10:55 Dose: 0 mls/hr Documented by: [id number] Infusion: 09/09/18 09:35 Dose: 0 mls/hr Documented by: [id number] Admin: 09/09/18 06:01 Dose: 28.8 mls/hr Documented by: [id number] Lactated Ringer's (Lr) 1,000 mls @ 100 mls/hr IV .Q10H [facility] Stop: 10/10/18 00:00 Last Admin: 09/09/18 22:37 Dose: 100 mls/hr Documented by: [id number] Acetaminophen (Ofirmev) 1,000 mg in 100 mls @ 400 mls/hr IV Q8H [facility] Stop: 10/09/18 20:59 Last Infusion: 09/09/18 21:13 Dose: 0 mls/hr Documented by: [id number] Admin: 09/09/18 20:50 Dose: 400 mls/hr Documented by: [id number] Morphine Sulfate (Morphine Sulfate) 4 mg IV Q4H PRN PRN Reason: Pain Stop: 09/23/18 17:49 Last Admin: 09/09/18 22:12 Dose: 4 mg Documented by: [id number] Discontinued Medications Fentanyl Citrate (Fentanyl Citrate) 50 mcg IV Q15M PRN PRN Reason: Pain Stop: 09/22/18 18:15 Last Admin: 09/08/18 21:38 Dose: 50 mcg Documented by: [id number] Admin: 09/08/18 19:15 Dose: 50 mcg Documented by: [id number] Fentanyl Citrate (Fentanyl Citrate) 25 mcg IV Q5M PRN PRN Reason: PACU Use Only-Pain Stop: 09/09/18 20:13 Last Admin: 09/09/18 15:56 Dose: 25 mcg Documented by: [id number] Admin: 09/09/18 15:49 Dose: 25 mcg Documented by: [id number] Fentanyl Citrate (Fentanyl Citrate) Confirm Administered Dose 100 mcg .ROUTE .STK-MED ONE Stop: 09/09/18 15:48 Last Admin: 09/09/18 17:38 Dose: Not Given Documented by: [id number] Sodium Chloride (Nss 1000ml) 1,000 mls @ 999 mls/hr IV .Q1H1M ONE Stop: 09/08/18 19:16 Last Infusion: 09/08/18 20:15 Dose: 0 mls/hr Documented by: [id number] Admin: 09/08/18 19:15 Dose: 999 mls/hr Documented by: [id number] Sodium Chloride (Nss 1000ml) 1,000 mls @ 125 mls/hr IV .Q8H [facility] Stop: 10/08/18 20:44 Last Infusion: 09/09/18 01:07 Dose: 0 mls/hr Documented by: [id number] Infusion: 09/08/18 22:15 Dose: 0 mls/hr Documented by: [id number] Admin: 09/08/18 20:58 Dose: 125 mls/hr Documented by: [id number] Potassium Chloride/Sodium Chloride (Normal Saline W/20 Meq Kcl) 20 meq in 1,000 mls @ 100 mls/hr IV .Q10H [facility] Stop: 10/08/18 22:59 Last Infusion: 09/09/18 09:35 Dose: 0 mls/hr Documented by: [id number] Admin: 09/09/18 00:25 Dose: 100 mls/hr Documented by: [id number] Piperacillin Sod/Tazobactam (Sod 3.375 gm/ Dextrose) 115 mls @ 230 mls/hr IV NOW ONE; Protocol Stop: 09/08/18 23:29 Last Infusion: 09/09/18 00:55 Dose: 0 mls/hr Documented by: [id number] Admin: 09/09/18 00:25 Dose: 230 mls/hr Documented by: [id number] Lactated Ringer's (Lr) 1,000 mls @ 200 mls/hr IV .Q5H [facility] Stop: 09/09/18 18:59 Last Admin: 09/09/18 17:40 Dose: Not Given Documented by: [id number] Infusion: 09/09/18 17:40 Dose: 0 mls/hr Documented by: [id number] Infusion: 09/09/18 13:23 Dose: 0 mls/hr Documented by: [id number] Admin: 09/09/18 09:34 Dose: 200 mls/hr Documented by: [id number] Lactated Ringer's (Lr) 1,000 mls @ 200 mls/hr IV .Q5H [facility] Stop: 09/09/18 22:59 Last Admin: 09/09/18 22:39 Dose: Not Given Documented by: [id number] Indomethacin (Indocin) Confirm Administered Dose 100 mg MI .STK-MED ONE Stop: 09/09/18 14:09 Last Admin: 09/09/18 15:09 Dose: 100 mg Documented by: [id number] Morphine Sulfate (Morphine Sulfate) Confirm Administered Dose 4 mg .ROUTE .STK- MED ONE Stop: 09/09/18 18:14 Last Admin: 09/09/18 18:17 Dose: 4 mg Documented by: [id number] Ondansetron HCl (Zofran) 4 mg IV NOW [facility] Stop: 09/08/18 18:17 Last Admin: 09/08/18 19:15 Dose: 4 mg Documented by: [id number] Ondansetron HCl (Zofran) 4 mg IV NOW [facility] Stop: 09/08/18 20:42 Last Admin: 09/08/18 20:58 Dose: 4 mg Documented by: [id number] Medical Decision Making Differential Diagnosis Differential diagnosis includes: gastritis, peptic ulcer disease, GERD, gallbladder disease, pancreatitis, small bowel obstruction, acute coronary syndrome, pericarditis, ischemic bowel, irritable bowel disease, irritable bowel syndrome, appendicitis, diverticulitis, malignancy, hernia, UTI, torsion, perforation, trauma, and kidney stones. Home Medications Current Medication List: was personally reviewed by me Laboratory Data Attestation: I reviewed the patient's lab results. Result diagrams: 09/09/18 06:13 09/09/18 06:13 Lab Results 09/08/18 09/08/18 09/08/18 Range/Units 19:11 19:11 19:11 WBC 7.62 (4.8-10.8) K/uL RBC 5.36 (4.2-5.4) M/uL Hgb 15.4 (12.0-16.0) g/dL Hct 45.0 (37-47) % MCV 84.0 (80-100) fL MCH 28.7 (25-34) pg MCHC 34.2 (32-36) g/dL RDW Std Deviation 42.4 (36.4-46.3) fL RDW Coeff of Antoine 13.8 (11.5-14.5) % Plt Count 246 (130-400) K/uL MPV 9.8 (7.4-10.4) fL Immature Gran % (Auto) 0.3 % Neut % (Auto) 68.2 % Lymph % (Auto) 21.5 % Larue % (Auto) 8.8 % Eos % (Auto) 0.9 % Baso % (Auto) 0.3 % Immature Gran # (Auto) 0.02 (0.00-0.02) K/uL Neut # (Auto) 5.20 (1.4-6.5) K/uL Lymph # (Auto) 1.64 (1.2-3.4) K/uL Larue # (Auto) 0.67 H (0.11-0.59) K/uL Eos # (Auto) 0.07 (0-0.5) K/uL Baso # (Auto) 0.02 (0-0.2) K/uL PT Cancelled INR Cancelled APTT (21.0-31.0) Seconds PTT Ratio Sodium 142 (136-145) mmol/L Potassium (3.5-5.1) mmol/L Chloride 109 H (98-107) mmol/L Carbon Dioxide 27 (21-32) mmol/L Anion Gap 6.0 (3-11) BUN 11 (7-18) mg/dl Creatinine 0.83 (0.6-1.2) mg/dl Est Cr Clr Drug Dosing 78.0 ml/min Est GFR ( Amer) 88.2 Est GFR (Non-Af Amer) 76.1 BUN/Creatinine Ratio 13.3 (10-20) Glucose 94 (70-99) mg/dl Calcium 9.3 (8.5-10.1) mg/dl Magnesium (1.8-2.4) mg/dl Total Bilirubin 2.1 H (0.2-1) mg/dl Direct Bilirubin AST (15-37) U/L ALT 499 H (12-78) U/L Alkaline Phosphatase 149 H (45-117) U/L Troponin I < 0.015 (0-0.045) ng/ml Total Protein 7.7 (6.4-8.2) gm/dl Albumin 3.7 (3.4-5.0) gm/dl Globulin 4.0 (2.5-4.0) gm/dl Albumin/Globulin Ratio 0.9 (0.9-2) Lipase 3582 H (73-393) U/L Urine Color Urine Appearance (Clear) Urine pH (4.5-7.5) Ur Specific [place] (1.000-1.030) Urine Protein (Negative) Urine Glucose (UA) (Negative) Urine Ketones (Negative) Urine Blood (Negative) Urine Nitrite (Negative) Urine Bilirubin (Negative) Urine Urobilinogen (Negative) Ur Leukocyte Esterase (Negative) Urine WBC (Auto) (0-5) /hpf Urine RBC (Auto) (0-4) /hpf U Hyaline Cast (Auto) (0-5) /lpf U Epithel Cells (Auto) (0-5) /lpf Urine Bacteria (Auto) (Negative) Hepatitis C Ab Screen (Neg) 09/08/18 09/08/18 09/08/18 Range/Units 20:15 20:19 20:19 WBC (4.8-10.8) K/uL RBC (4.2-5.4) M/uL Hgb (12.0-16.0) g/dL Hct (37-47) % MCV (80-100) fL MCH (25-34) pg MCHC (32-36) g/dL RDW Std Deviation (36.4-46.3) fL RDW Coeff of Antoine (11.5-14.5) % Plt Count (130-400) K/uL MPV (7.4-10.4) fL Immature Gran % (Auto) % Neut % (Auto) % Lymph % (Auto) % Larue % (Auto) % Eos % (Auto) % Baso % (Auto) % Immature Gran # (Auto) (0.00-0.02) K/uL Neut # (Auto) (1.4-6.5) K/uL Lymph # (Auto) (1.2-3.4) K/uL Larue # (Auto) (0.11-0.59) K/uL Eos # (Auto) (0-0.5) K/uL Baso # (Auto) (0-0.2) K/uL PT 10.6 INR 1.0 APTT (21.0-31.0) Seconds PTT Ratio Sodium (136-145) mmol/L Potassium 3.8 (3.5-5.1) mmol/L Chloride (98-107) mmol/L Carbon Dioxide (21-32) mmol/L Anion Gap (3-11) BUN (7-18) mg/dl Creatinine (0.6-1.2) mg/dl Est Cr Clr Drug Dosing ml/min Est GFR ( Amer) Est GFR (Non-Af Amer) BUN/Creatinine Ratio (10-20) Glucose (70-99) mg/dl Calcium (8.5-10.1) mg/dl Magnesium 2.3 (1.8-2.4) mg/dl Total Bilirubin (0.2-1) mg/dl Direct Bilirubin AST 633 H (15-37) U/L ALT (12-78) U/L Alkaline Phosphatase (45-117) U/L Troponin I (0-0.045) ng/ml Total Protein (6.4-8.2) gm/dl Albumin (3.4-5.0) gm/dl Globulin (2.5-4.0) gm/dl Albumin/Globulin Ratio (0.9-2) Lipase (73-393) U/L Urine Color Yellow Urine Appearance Clear (Clear) Urine pH 7.5 (4.5-7.5) Ur Specific [place] 1.007 (1.000-1.030) Urine Protein Negative (Negative) Urine Glucose (UA) Negative (Negative) Urine Ketones Negative (Negative) Urine Blood Negative (Negative) Urine Nitrite Negative (Negative) Urine Bilirubin Negative (Negative) Urine Urobilinogen Negative (Negative) Ur Leukocyte Esterase 1+ H (Negative) Urine WBC (Auto) 1-5 (0-5) /hpf Urine RBC (Auto) 0-4 (0-4) /hpf U Hyaline Cast (Auto) 1-5 (0-5) /lpf U Epithel Cells (Auto) 10-20 H (0-5) /lpf Urine Bacteria (Auto) Negative (Negative) Hepatitis C Ab Screen (Neg) 09/08/18 09/09/18 09/09/18 Range/Units 20:19 06:13 06:13 WBC 6.21 (4.8-10.8) K/uL RBC 5.00 (4.2-5.4) M/uL Hgb 14.2 (12.0-16.0) g/dL Hct 42.0 (37-47) % MCV 84.0 (80-100) fL MCH 28.4 (25-34) pg MCHC 33.8 (32-36) g/dL RDW Std Deviation 42.4 (36.4-46.3) fL RDW Coeff of Antoine 13.9 (11.5-14.5) % Plt Count 237 (130-400) K/uL MPV 9.4 (7.4-10.4) fL Immature Gran % (Auto) 0.3 % Neut % (Auto) 74.7 % Lymph % (Auto) 18.7 % Larue % (Auto) 5.0 % Eos % (Auto) 1.1 % Baso % (Auto) 0.2 % Immature Gran # (Auto) 0.02 (0.00-0.02) K/uL Neut # (Auto) 4.64 (1.4-6.5) K/uL Lymph # (Auto) 1.16 L (1.2-3.4) K/uL Larue # (Auto) 0.31 (0.11-0.59) K/uL Eos # (Auto) 0.07 (0-0.5) K/uL Baso # (Auto) 0.01 (0-0.2) K/uL PT 10.7 INR 1.0 APTT 23.9 (21.0-31.0) Seconds PTT Ratio 0.9 Sodium (136-145) mmol/L Potassium (3.5-5.1) mmol/L Chloride (98-107) mmol/L Carbon Dioxide (21-32) mmol/L Anion Gap (3-11) BUN (7-18) mg/dl Creatinine (0.6-1.2) mg/dl Est Cr Clr Drug Dosing ml/min Est GFR ( Amer) Est GFR (Non-Af Amer) BUN/Creatinine Ratio (10-20) Glucose (70-99) mg/dl Calcium (8.5-10.1) mg/dl Magnesium (1.8-2.4) mg/dl Total Bilirubin (0.2-1) mg/dl Direct Bilirubin AST (15-37) U/L ALT (12-78) U/L Alkaline Phosphatase (45-117) U/L Troponin I (0-0.045) ng/ml Total Protein (6.4-8.2) gm/dl Albumin (3.4-5.0) gm/dl Globulin (2.5-4.0) gm/dl Albumin/Globulin Ratio (0.9-2) Lipase (73-393) U/L Urine Color Urine Appearance (Clear) Urine pH (4.5-7.5) Ur Specific [place] (1.000-1.030) Urine Protein (Negative) Urine Glucose (UA) (Negative) Urine Ketones (Negative) Urine Blood (Negative) Urine Nitrite (Negative) Urine Bilirubin (Negative) Urine Urobilinogen (Negative) Ur Leukocyte Esterase (Negative) Urine WBC (Auto) (0-5) /hpf Urine RBC (Auto) (0-4) /hpf U Hyaline Cast (Auto) (0-5) /lpf U Epithel Cells (Auto) (0-5) /lpf Urine Bacteria (Auto) (Negative) Hepatitis C Ab Screen Neg (Neg) 09/09/18 09/09/18 09/09/18 Range/Units 06:13 06:13 11:56 WBC (4.8-10.8) K/uL RBC (4.2-5.4) M/uL Hgb (12.0-16.0) g/dL Hct (37-47) % MCV (80-100) fL MCH (25-34) pg MCHC (32-36) g/dL RDW Std Deviation (36.4-46.3) fL RDW Coeff of Antoine (11.5-14.5) % Plt Count (130-400) K/uL MPV (7.4-10.4) fL Immature Gran % (Auto) % Neut % (Auto) % Lymph % (Auto) % Larue % (Auto) % Eos % (Auto) % Baso % (Auto) % Immature Gran # (Auto) (0.00-0.02) K/uL Neut # (Auto) (1.4-6.5) K/uL Lymph # (Auto) (1.2-3.4) K/uL Larue # (Auto) (0.11-0.59) K/uL Eos # (Auto) (0-0.5) K/uL Baso # (Auto) (0-0.2) K/uL PT INR APTT (21.0-31.0) Seconds PTT Ratio Sodium 143 (136-145) mmol/L Potassium 4.0 (3.5-5.1) mmol/L Chloride 112 H (98-107) mmol/L Carbon Dioxide 26 (21-32) mmol/L Anion Gap 5.0 (3-11) BUN 11 (7-18) mg/dl Creatinine 0.84 (0.6-1.2) mg/dl Est Cr Clr Drug Dosing 76.2 ml/min Est GFR ( Amer) 86.9 Est GFR (Non-Af Amer) 75.0 BUN/Creatinine Ratio 12.8 (10-20) Glucose 98 (70-99) mg/dl Calcium 8.6 (8.5-10.1) mg/dl Magnesium (1.8-2.4) mg/dl Total Bilirubin 1.6 H 1.4 H (0.2-1) mg/dl Direct Bilirubin TNP AST 826 H TNP (15-37) U/L ALT 873 H 748 H (12-78) U/L Alkaline Phosphatase 160 H 152 H (45-117) U/L Troponin I (0-0.045) ng/ml Total Protein 6.4 6.1 L (6.4-8.2) gm/dl Albumin 3.1 L 3.0 L (3.4-5.0) gm/dl Globulin 3.3 (2.5-4.0) gm/dl Albumin/Globulin Ratio 0.9 (0.9-2) Lipase 35773 H 8539 H (73-393) U/L Urine Color Urine Appearance (Clear) Urine pH (4.5-7.5) Ur Specific [place] (1.000-1.030) Urine Protein (Negative) Urine Glucose (UA) (Negative) Urine Ketones (Negative) Urine Blood (Negative) Urine Nitrite (Negative) Urine Bilirubin (Negative) Urine Urobilinogen (Negative) Ur Leukocyte Esterase (Negative) Urine WBC (Auto) (0-5) /hpf Urine RBC (Auto) (0-4) /hpf U Hyaline Cast (Auto) (0-5) /lpf U Epithel Cells (Auto) (0-5) /lpf Urine Bacteria (Auto) (Negative) Hepatitis C Ab Screen (Neg) 09/09/18 Range/Units 13:12 WBC (4.8-10.8) K/uL RBC (4.2-5.4) M/uL Hgb (12.0-16.0) g/dL Hct (37-47) % MCV (80-100) fL MCH (25-34) pg MCHC (32-36) g/dL RDW Std Deviation (36.4-46.3) fL RDW Coeff of Antoine (11.5-14.5) % Plt Count (130-400) K/uL MPV (7.4-10.4) fL Immature Gran % (Auto) % Neut % (Auto) % Lymph % (Auto) % Larue % (Auto) % Eos % (Auto) % Baso % (Auto) % Immature Gran # (Auto) (0.00-0.02) K/uL Neut # (Auto) (1.4-6.5) K/uL Lymph # (Auto) (1.2-3.4) K/uL Larue # (Auto) (0.11-0.59) K/uL Eos # (Auto) (0-0.5) K/uL Baso # (Auto) (0-0.2) K/uL PT INR APTT (21.0-31.0) Seconds PTT Ratio Sodium (136-145) mmol/L Potassium (3.5-5.1) mmol/L Chloride (98-107) mmol/L Carbon Dioxide (21-32) mmol/L Anion Gap (3-11) BUN (7-18) mg/dl Creatinine (0.6-1.2) mg/dl Est Cr Clr Drug Dosing ml/min Est GFR ( Amer) Est GFR (Non-Af Amer) BUN/Creatinine Ratio (10-20) Glucose (70-99) mg/dl Calcium (8.5-10.1) mg/dl Magnesium (1.8-2.4) mg/dl Total Bilirubin (0.2-1) mg/dl Direct Bilirubin 0.5 H AST 506 H (15-37) U/L ALT (12-78) U/L Alkaline Phosphatase (45-117) U/L Troponin I (0-0.045) ng/ml Total Protein (6.4-8.2) gm/dl Albumin (3.4-5.0) gm/dl Globulin (2.5-4.0) gm/dl Albumin/Globulin Ratio (0.9-2) Lipase (73-393) U/L Urine Color Urine Appearance (Clear) Urine pH (4.5-7.5) Ur Specific [place] (1.000-1.030) Urine Protein (Negative) Urine Glucose (UA) (Negative) Urine Ketones (Negative) Urine Blood (Negative) Urine Nitrite (Negative) Urine Bilirubin (Negative) Urine Urobilinogen (Negative) Ur Leukocyte Esterase (Negative) Urine WBC (Auto) (0-5) /hpf Urine RBC (Auto) (0-4) /hpf U Hyaline Cast (Auto) (0-5) /lpf U Epithel Cells (Auto) (0-5) /lpf Urine Bacteria (Auto) (Negative) Hepatitis C Ab Screen (Neg) Imaging Data Radiologist's Impression: Radiology results as stated below per my review and the radiologist's interpretation: R chest 1V portable HISTORY: 63 years-old Female cough, chills acute right lower rib pain with cough and chills COMPARISON: None available TECHNIQUE: Portable AP view of the chest FINDINGS: Cardiac silhouette is upper limits of normal in size. There is no pneumothorax, large pleural effusion or overt pulmonary edema. Subsegmental left basilar opacities predominately appear to be linear. Mild blunting of the right costophrenic angle suggests atelectasis. Bones appear grossly intact. IMPRESSION: Minimal linear left basilar opacities suggest probable atelectasis. Pneumonitis considered less likely. The above report was generated using voice recognition software. It may contain grammatical, syntax or spelling errors. Electronically signed by: Diego Carpenter M.D. 09/08/2018 6:59 PM US gallbladder HISTORY: 63 years-old Female ruq pain, n/v acute right upper quadrant abdominal pain with nausea and vomiting COMPARISON: Chest radiograph of same day TECHNIQUE: Multiple real-time sonographic images of the abdominal right upper qu adrant were obtained assessing grayscale appearance and color flow FINDINGS: Imaged pancreas appears normal. There may be mild intrahepatic biliary ductal dilation. There is nonspecific slightly increased echogenicity of the liver. No evidence of ascites or cirrhosis. Mild gallbladder distention. Suggestion of trace pericholecystic fluid versus a meniscal body wall which measures the upper limits of normal at 3 mm. Sonographic Alvarado sign reported as negative. Common bile duct is dilated measuring 1.4 cm. Trace gallbladder sludge without shadowing cholelithiasis. Imaged right kidney demonstrates no renal calculi. Mild pelviectasis incidentally noted. IMPRESSION: 1. Mild gallbladder distention with gallbladder sludge. Additionally, the gallbladder wall measures within the upper limits of normal and there is suggestion of trace pericholecystic edema versus edematous gallbladder wall. Correlate clinically to exclude acute acalculus cholecystitis. 2. Dilated common bile duct without obstructing biliary stone or lesion identified on these images. Correlate clinically and with laboratory analysis to exclude obstructive etiology. 3. Suggestion of hepatic steatosis. The above report was generated using voice recognition software. It may contain grammatical, syntax or spelling errors. Electronically signed by: Diego Carpenter M.D. 09/08/2018 8:04 PM ECG Data Attestation: I personally reviewed and interpreted this ECG as follows: Indication: abdominal pain Rate (beats per minute): 54 Rhythm: sinus bradycardia Findings: + other (normal intervals), + T-wave inversion (in lead 3) and + left axis deviation; no acute ischemic change and no ectopy Blood Pressure Blood Pressure Findings: Elevated blood pressure Blood Pressure Disposition: further management by hospitalist MDM Narrative Patient presented here and comfortable appearing with persistent right upper quadrant abdominal pain and nausea. Patient found to have abnormal LFTs and lipase. Patient found to have cholecystitis noted on ultrasound however concern for dilated CBD and suspicion for choledocholithiasis. Likely this was the etiology of the patient's pancreatitis also. After discussion with patient of all labs and results as well as need for additional evaluation, case discussed with hospitalist. I did order MRCP which was pending at the time of our discussion. They will follow this and discussed the case with GI for possible additional intervention. Patient hemodynamically stable here. I do not suspect a sending cholangitis. No evidence of bacteremia/sepsis. Impression & Plan Pancreatitis, Cholecystitis, Elevated LFTs, Abdominal pain Discharge Plan Visit Data *Final* Discharge Date/Time: 09/08/18 22:17 Chief Complaint: Abdominal Pain Stated Complaint: PAIN IN STOMACH ED Provider: Adelaida Angel Discharge Problem: Pancreatitis, Cholecystitis, Elevated LFTs, Abdominal pain Patient Disposition: Admitted As Inpatient Discharge Instructions Interventions: ED Discharge Assessment Last Done: 09/08/18 22:17 Discharge Problem: Pancreatitis Qualifiers: Chronicity: acute Pancreatitis type: unspecified pancreatitis type Acute pancreatitis complication: unspecified Qualified Code(s): K85.90 - Acute pancreatitis without necrosis or infection, unspecified Abdominal pain Qualifiers: Abdominal location: right upper quadrant Qualified Code(s): R10.11 - Right upper quadrant pain The scribe's documentation has been prepared under my direction and personally reviewed by me in its entirety. I confirm that the note above accurately reflects all work, treatment, procedures, and medical decision making performed by me.
[2018-09-10] MEDS: PIPERACILLIN/TAZOBACTAM 3.375 GM in DEXTROSE 5% 100 ML IV SCH ×3 (03:23→18:35)
[2018-09-10] MEDS: ACETAMINOPHEN 1,000 MG/100 ML VIAL IV SCH ×3 (05:48→21:08)
[2018-09-10 07:10] LABS: Basophils # (auto) 0.01 K/uL (0-0.2); Basophils % (auto) 0.1 %; Eosinophils # (auto) 0.06 K/uL (0-0.5); Eosinophils % (auto) 0.7 %; Hematocrit (blood only) 39.6 % (37-47); Hemoglobin 13.3 g/dL (12.0-16.0); Immature Granulocytes # (auto) 0.01 K/uL (0.00-0.02); Immature Granulocytes % (auto) 0.1 %; Lymphocytes # (auto) 1.33 K/uL (1.2-3.4); Lymphocytes % (auto) 15.2 %; Mean Corpuscular Hgb Conc 33.6 g/dL (32-36); Mean Corpuscular Volume 84.4 fL (80-100); Mean Platelet Volume 9.4 fL (7.4-10.4); Monocytes # (auto) 0.68 K/uL (0.11-0.59); Monocytes % (auto) 7.8 %; Neutrophils # (auto) 6.67 K/uL (1.4-6.5); Neutrophils % (auto) 76.1 %; Platelet Count 222 K/uL (130-400); RDW Coefficient of Variation 14.1 % (11.5-14.5); RDW Standard Deviation 43.5 fL (36.4-46.3); Red Blood Count 4.69 M/uL (4.2-5.4); White Blood Count 8.76 K/uL (4.8-10.8)
[2018-09-10 07:25] LABS: INR 1.1 (0.9-1.1); Prothrombin Time 11.3 Seconds (9.0-12.0)
[2018-09-10 07:26] LABS: Albumin Level 2.9 gm/dl (3.4-5.0); BUN Creatinine Ratio 10.7 (10-20); Calcium 8.4 mg/dl (8.5-10.1); Creatinine Clr Calc Pharmacy 91.4 ml/min; Est GFR (African American) 108.4; Est GFR (Non-African American) 93.5; Magnesium 2.2 mg/dl (1.8-2.4); Potassium 3.7 mmol/L (3.5-5.1)
[2018-09-10 07:39] LABS: Albumin Globulin Ratio 0.9 (0.9-2); Bilirubin,Total 0.8 mg/dl (0.2-1); Globulin 3.1 gm/dl (2.5-4.0)
[2018-09-10] MEDS: LACTATED RINGER'S 1,000 ML IV SCH ×2 (08:44→18:03)
--- NOTE | 2018-09-10 09:12 | History & Physical Report ---
Date of Service September 10, 2018 Assessment & Plan (1) Choledocholithiasis: Patient presented with what appears to be gallstone pancreatitis. She did have placement of a biliary stent during yesterday's examination and her labs seem to be improving. I would suggest further evaluation per general surgery as you are planning to cholecystectomy during the same hospital admission. We will plan to do a follow-up ERCP with endoscopic ultrasound in about 6-8 weeks. The patient did have an indeterminate biliary stricture seen during her exam. Based on the patient's history I suspect this may be an inflammatory stricture from passage of gallstones. (2) Gallstone pancreatitis: History of Present Illness Chief Complaint: Post ERCP Primary Care Provider: Zeyad Chambers MD The patient underwent ERCP yesterday for suspected choledocholithiasis. We performed an endoscopic ultrasound during the procedure and there was no evidence of an underlying pancreatic or biliary mass. This morning she notes having some discomfort but feels improved compared to yesterday. 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 Beliefs That Will Affect Care: None marital status: Current Living Situation: Spouse Other Information That Helps Us Care for You: No Feels Safe at Home: Yes Safety Concerns: Feels Safe At This Time Smoking Status: Never smoker Hx Alcohol Use: Yes Hx Substance Use: No Review of Systems Eyes: no diplopia Respiratory: no change in sputum and no hemoptysis Cardiovascular: no chest pain with activity Physical Exam Vital Signs (Past 24 Hours): Last Vital Signs Temp 36.8 C 09/10/18 07:24 Pulse 52 L 09/10/18 07:24 Resp 18 09/10/18 07:24 BP 114/72 09/10/18 07:24 Pulse Ox 91 09/10/18 07:24 Eyes: PERRL, conjunctivae normal, anicteric sclerae Neck: trachea midline, no thyromegaly Respiratory: normal respiratory effort, lungs clear to auscultation Cardiovascular: Rate/Rhythm: regular rate Heart Sounds: no murmur Gastrointestinal (Abdomen): Mild abdominal tenderness. No rebound or peritoneal signs noted Results & Data Laboratory Results Laboratory Results - last 24 hr 09/09/18 09/09/18 09/09/18 06:13 11:56 13:12 WBC RBC Hgb Hct MCV MCH MCHC RDW Std Deviation RDW Coeff of Antoine Plt Count MPV Immature Gran % (Auto) Neut % (Auto) Lymph % (Auto) [place] % (Auto) Eos % (Auto) Baso % (Auto) Immature Gran # (Auto) Neut # (Auto) Lymph # (Auto) [place] # (Auto) Eos # (Auto) Baso # (Auto) PT INR Sodium Potassium Chloride Carbon Dioxide Anion Gap BUN Creatinine Est Cr Clr Drug Dosing Est GFR ( Amer) Est GFR (Non-Af Amer) BUN/Creatinine Ratio Glucose Calcium Magnesium Total Bilirubin 1.4 H Direct Bilirubin TNP 0.5 H AST TNP 506 H ALT 748 H Alkaline Phosphatase 152 H Total Protein 6.1 L Albumin 3.0 L Globulin Albumin/Globulin Ratio Lipase 16662 H 8539 H 09/10/18 09/10/18 09/10/18 06:32 06:32 06:32 WBC 8.76 RBC 4.69 Hgb 13.3 Hct 39.6 MCV 84.4 MCH 28.4 MCHC 33.6 RDW Std Deviation 43.5 RDW Coeff of Antoine 14.1 Plt Count 222 MPV 9.4 Immature Gran % (Auto) 0.1 Neut % (Auto) 76.1 Lymph % (Auto) 15.2 [place] % (Auto) 7.8 Eos % (Auto) 0.7 Baso % (Auto) 0.1 Immature Gran # (Auto) 0.01 Neut # (Auto) 6.67 H Lymph # (Auto) 1.33 [place] # (Auto) 0.68 H Eos # (Auto) 0.06 Baso # (Auto) 0.01 PT 11.3 INR 1.1 Sodium 141 Potassium 3.7 Chloride 108 H Carbon Dioxide 28 Anion Gap 5.0 BUN 7 Creatinine 0.70 Est Cr Clr Drug Dosing 91.4 Est GFR ( Amer) 108.4 Est GFR (Non-Af Amer) 93.5 BUN/Creatinine Ratio 10.7 Glucose 98 Calcium 8.4 L Magnesium 2.2 Total Bilirubin 0.8 D Direct Bilirubin AST 206 H ALT 533 H Alkaline Phosphatase 144 H Total Protein 6.0 L Albumin 2.9 L Globulin 3.1 Albumin/Globulin Ratio 0.9 Lipase 09/10/18 06:32 WBC RBC Hgb Hct MCV MCH MCHC RDW Std Deviation RDW Coeff of Antoine Plt Count MPV Immature Gran % (Auto) Neut % (Auto) Lymph % (Auto) [place] % (Auto) Eos % (Auto) Baso % (Auto) Immature Gran # (Auto) Neut # (Auto) Lymph # (Auto) [place] # (Auto) Eos # (Auto) Baso # (Auto) PT INR Sodium Potassium Chloride Carbon Dioxide Anion Gap BUN Creatinine Est Cr Clr Drug Dosing Est GFR ( Amer) Est GFR (Non-Af Amer) BUN/Creatinine Ratio Glucose Calcium Magnesium Total Bilirubin Direct Bilirubin AST ALT Alkaline Phosphatase Total Protein Albumin Globulin Albumin/Globulin Ratio Lipase 1895 H Code Status & VTE Plan VTE Prophylaxis Plan VTE Prophylaxis will be ordered: Yes
[2018-09-10] MEDS ORDERED: OXYCODONE HCL IR 5 MG TAB (IMMEDIATE RELEASE) PO PRN (09:42)
--- NOTE | 2018-09-10 11:06 | Progress Note ---
Date of Service September 10, 2018 Assessment & Plan (1) Gallstone pancreatitis: 63 yo female who presented with acute cholecystitis, gallstone pancreatitis, and choledocholithiasis. She is s/p ERCP with sphincterotomy, removal of stones, and CBD stent placement. LFTs and lipase are trending down and pain has improved. Tentative plan for OR tomorrow - OR tomorrow for laparoscopic, possible open, cholecystectomy, possible intra- operative cholangiogram. Discussed increased risk of needing to convert to an open procedure given the likely amount of inflammation associated with her disease process. - Consent obtained (see below) - Okay for clear liquids today, NPO after midnight - Recheck CBC, BMP, LFTs tomorrow - Continue abx, morning dose to be given within 1 hour of incision - Dana-operative expectations were discussed with the patient including but not limited to: - Weight restriction of approximately 10 pounds x 4-6 weeks post-op - Pain control including scheduled Tylenol alternating with Ibuprofen, with possible Oxycodone for breakthrough as well as use of ice Risks, benefits, goals, complications, post-op expectations, limitations, and alternatives were discussed with the patient Risks include, but are not limited to, pain, scarring, bleeding and associated problems, infection, heart attack, breathing problems including required intubation post-operatively, stroke, blood clots including deep vein thrombosis and pulmonary embolism, injury to surrounding tissues or organs, , need for additional procedures, injury to bile ducts, bile leak, abscess, seroma, hematoma, hernia, diarrhea and failure of symptom resolution. All questions were answered to apparent satisfaction and the patient freely signed consent. (2) Choledocholithiasis: (3) Cholecystitis: Subjective Pt tolerated ERCP well yesterday. States pain has decreased. Denies nausea. Physical Exam Vital Signs (Past 24 Hours): Last Vital Signs Temp 36.8 C 09/10/18 07:24 Pulse 52 L 09/10/18 07:24 Resp 18 09/10/18 07:24 BP 114/72 09/10/18 07:24 Pulse Ox 91 09/10/18 07:24 Constitutional: no acute distress Respiratory: normal respiratory effort Cardiovascular: Rate/Rhythm: regular rate Gastrointestinal (Abdomen): soft, nondistended, nontender Results & Data Laboratory Results 04/06/19 04/06/19 04/06/19 Range/Units 06:32 06:32 06:32 WBC (4.8-10.8) K/uL RBC (4.2-5.4) M/uL Hgb (12.0-16.0) g/dL Hct (37-47) % MCV (80-100) fL MCH (25-34) pg MCHC (32-36) g/dL RDW Std Deviation (36.4-46.3) fL RDW Coeff of Antoine (11.5-14.5) % Plt Count (130-400) K/uL MPV (7.4-10.4) fL Immature Gran % (Auto) % Neut % (Auto) % Lymph % (Auto) % [place] % (Auto) % Eos % (Auto) % Baso % (Auto) % Immature Gran # (Auto) (0.00-0.02) K/uL Neut # (Auto) (1.4-6.5) K/uL Lymph # (Auto) (1.2-3.4) K/uL [place] # (Auto) (0.11-0.59) K/uL Eos # (Auto) (0-0.5) K/uL Baso # (Auto) (0-0.2) K/uL PT 11.3 (9.0-12.0) Seconds INR 1.1 (0.9-1.1) Sodium 141 (136-145) mmol/L Potassium 3.7 (3.5-5.1) mmol/L Chloride 108 H (98-107) mmol/L Carbon Dioxide 28 (21-32) mmol/L Anion Gap 5.0 (3-11) BUN 7 (7-18) mg/dl Creatinine 0.70 (0.6-1.2) mg/dl Est Cr Clr Drug Dosing 91.4 ml/min Est GFR ( Amer) 108.4 Est GFR (Non-Af Amer) 93.5 BUN/Creatinine Ratio 10.7 (10-20) Glucose 98 (70-99) mg/dl Calcium 8.4 L (8.5-10.1) mg/dl Magnesium 2.2 (1.8-2.4) mg/dl Total Bilirubin 0.8 D (0.2-1) mg/dl Direct Bilirubin AST 206 H ALT 533 H (12-78) U/L Alkaline Phosphatase 144 H (45-117) U/L Total Protein 6.0 L (6.4-8.2) gm/dl Albumin 2.9 L (3.4-5.0) gm/dl Globulin 3.1 (2.5-4.0) gm/dl Albumin/Globulin Ratio 0.9 (0.9-2) Lipase 1895 H (73-393) U/L 09/10/18 09/09/18 09/09/18 Range/Units 06:32 13:12 11:56 WBC 8.76 (4.8-10.8) K/uL RBC 4.69 (4.2-5.4) M/uL Hgb 13.3 (12.0-16.0) g/dL Hct 39.6 (37-47) % MCV 84.4 (80-100) fL MCH 28.4 (25-34) pg MCHC 33.6 (32-36) g/dL RDW Std Deviation 43.5 (36.4-46.3) fL RDW Coeff of Antoine 14.1 (11.5-14.5) % Plt Count 222 (130-400) K/uL MPV 9.4 (7.4-10.4) fL Immature Gran % (Auto) 0.1 % Neut % (Auto) 76.1 % Lymph % (Auto) 15.2 % [place] % (Auto) 7.8 % Eos % (Auto) 0.7 % Baso % (Auto) 0.1 % Immature Gran # (Auto) 0.01 (0.00-0.02) K/uL Neut # (Auto) 6.67 H (1.4-6.5) K/uL Lymph # (Auto) 1.33 (1.2-3.4) K/uL [place] # (Auto) 0.68 H (0.11-0.59) K/uL Eos # (Auto) 0.06 (0-0.5) K/uL Baso # (Auto) 0.01 (0-0.2) K/uL PT (9.0-12.0) Seconds INR (0.9-1.1) Sodium (136-145) mmol/L Potassium (3.5-5.1) mmol/L Chloride (98-107) mmol/L Carbon Dioxide (21-32) mmol/L Anion Gap (3-11) BUN (7-18) mg/dl Creatinine (0.6-1.2) mg/dl Est Cr Clr Drug Dosing ml/min Est GFR ( Amer) Est GFR (Non-Af Amer) BUN/Creatinine Ratio (10-20) Glucose (70-99) mg/dl Calcium (8.5-10.1) mg/dl Magnesium (1.8-2.4) mg/dl Total Bilirubin 1.4 H (0.2-1) mg/dl Direct Bilirubin 0.5 H TNP AST 506 H TNP ALT 748 H (12-78) U/L Alkaline Phosphatase 152 H (45-117) U/L Total Protein 6.1 L (6.4-8.2) gm/dl Albumin 3.0 L (3.4-5.0) gm/dl Globulin (2.5-4.0) gm/dl Albumin/Globulin Ratio (0.9-2) Lipase 8539 H (73-393) U/L
[2018-09-10] MEDS: PANTOprazole 40 MG in SYRINGE 0 ML IV SCH (11:18)
--- NOTE | 2018-09-10 14:23 | Hospitalist Progress Note ---
Date of Service September 10, 2018 Assessment & Plan (1) Cholecystitis: Acalculous cholecystitis/pancreatitis-- Patient symptoms, and imaging via gallbladder ultrasound and MRCP did not detect any stones in the common bile duct or mass however there was CBD dilatation. NPO LR @ 100 ml/hr Continue Zosyn, Zofran, Protonix Morphine sulfate 4 mg IV every 3 hours as needed pain. AST, ALT peaked at 826 and 873, Lipase peaked at 17,931 though unclear if this is an accurate result as next value six hours later was 8,539. Consulted gastroenterology - for ERCP 09/10 with removal of stones and stenting. Surgery consulted - to OR tomorrow for cholecystectomy (2) Pancreatitis: As above. (3) Hepatic steatosis: As seen on gallbladder US - lifestyle counseling, follow up outpatient (4) DVT prophylaxis: SCDs Subjective Ms. Lewis is feeling comfortable, mild right upper quadrant pain. No other complaints Review of Systems All systems reviewed & are unremarkable except as noted in HPI & below Physical Exam Vital Signs (Past 24 Hours): Last Vital Signs Temp 36.8 C 09/10/18 07:24 Pulse 52 L 09/10/18 07:24 Resp 18 09/10/18 07:24 BP 114/72 09/10/18 07:24 Pulse Ox 91 09/10/18 07:24 Physical Exam: General: no distress Eyes: normal inspection, PERLL Respiratory: chest non tender, clear to auscultation, normal breath sounds, no respiratory distress, no accessory muscle use Cardiac: regular rate and rhythm, no rub or gallop, no murmur, no edema, no jvd GI/: active bowel sounds, no abd pain or tenderness, soft, non distended Extremities: normal range of motion, normal strength, non tender Neuro/Psych: alert and oriented x 3, normal mood and affect Skin: normal color, dry Results & Data Laboratory Results Abnormal lab results 09/10/18 09/10/18 09/10/18 Range/Units 06:32 06:32 06:32 Neut # (Auto) 6.67 H (1.4-6.5) K/uL [place] # (Auto) 0.68 H (0.11-0.59) K/uL Chloride 108 H (98-107) mmol/L Calcium 8.4 L (8.5-10.1) mg/dl AST 206 H (15-37) U/L ALT 533 H (12-78) U/L Alkaline Phosphatase 144 H (45-117) U/L Total Protein 6.0 L (6.4-8.2) gm/dl Albumin 2.9 L (3.4-5.0) gm/dl Lipase 1895 H (73-393) U/L (1) Pancreatitis Acute pancreatitis complication: unspecified Chronicity: acute Pancreatitis type: unspecified pancreatitis type Qualified Code(s): K85.90 - Acute p ancreatitis without necrosis or infection, unspecified
[2018-09-11] MEDS: PIPERACILLIN/TAZOBACTAM 3.375 GM in DEXTROSE 5% 100 ML IV SCH ×3 (02:19→18:12)
[2018-09-11] MEDS: LACTATED RINGER'S 1,000 ML IV SCH ×3 (04:21→23:28)
[2018-09-11] MEDS: ACETAMINOPHEN 1,000 MG/100 ML VIAL IV SCH ×3 (04:22→20:43)
[2018-09-11 06:40] LABS: Basophils # (auto) 0.01 K/uL (0-0.2); Basophils % (auto) 0.1 %; Eosinophils # (auto) 0.14 K/uL (0-0.5); Eosinophils % (auto) 1.6 %; Hematocrit (blood only) 40.3 % (37-47); Hemoglobin 13.5 g/dL (12.0-16.0); Immature Granulocytes # (auto) 0.02 K/uL (0.00-0.02); Immature Granulocytes % (auto) 0.2 %; Lymphocytes % (auto) 16.7 %; Mean Corpuscular Hgb Conc 33.5 g/dL (32-36); Mean Corpuscular Volume 84.7 fL (80-100); Mean Platelet Volume 9.4 fL (7.4-10.4); Monocytes # (auto) 0.69 K/uL (0.11-0.59); Monocytes % (auto) 7.7 %; Neutrophils # (auto) 6.61 K/uL (1.4-6.5); Neutrophils % (auto) 73.7 %; Platelet Count 211 K/uL (130-400); RDW Coefficient of Variation 14.2 % (11.5-14.5); RDW Standard Deviation 43.7 fL (36.4-46.3); Red Blood Count 4.76 M/uL (4.2-5.4); White Blood Count 8.97 K/uL (4.8-10.8)
[2018-09-11 06:57] LABS: Albumin Level 2.9 gm/dl (3.4-5.0); BUN Creatinine Ratio 7.8 (10-20); Calcium 8.5 mg/dl (8.5-10.1); Creatinine Clr Calc Pharmacy 85.3 ml/min; Est GFR (African American) 99.7; Magnesium 2.2 mg/dl (1.8-2.4); Potassium 3.7 mmol/L (3.5-5.1)
[2018-09-11 07:00] LABS: Albumin Globulin Ratio 0.9 (0.9-2); Bilirubin,Total 0.8 mg/dl (0.2-1); Globulin 3.3 gm/dl (2.5-4.0); INR 1.1 (0.9-1.1); Prothrombin Time 11.4 Seconds (9.0-12.0); Total Protein 6.2 gm/dl (6.4-8.2)
[2018-09-11] MEDS ORDERED: fentaNYL citrate 100 MCG/2 ML VIAL ONE ×3 (07:00→09:50)
[2018-09-11] MEDS ORDERED: MIDAZOLAM HCL 1 MG/ML 2ML VIAL ONE (07:00)
--- NOTE | 2018-09-11 07:03 | Anesthesiology Consultation ---
Date of Service September 11, 2018 Assessment & Plan Chart Review Chart Review: Acceptable Risk for Surgery and Patient NOT seen in Pre Admission Testing Consults Requested none ASA ASA2 Proposed Anesthesia Anesthesia Type: General NPO Date Last Intake of Fluids: 09/10/18 Time Last Intake of Fluids: 23:59 Date Last Intake of Solids: 09/10/18 Time Last Intake of Solids: 23:59 History Surgery Operation Date: 09/09/18 13:00 Proposed Procedures p Endoscopic Retrograde Cholangiopancreatography - Nona Villalobos Height/Weight Height: 5 ft 4 in Weight: 89.5 kg Allergies Allergy/AdvReac Type Severity Reaction Status Date / Time Sulfa (Sulfonamide Allergy Unknown UNKNOWN Verified 09/08/18 19:16 Antibiotics) Medications Home Medications Medication Instructions Recorded Confirmed Last Taken No Known Home Medications 09/08/18 09/08/18 Unknown Active Medications Generic Name Dose Route Start Last Admin Trade Name Freq PRN Reason Stop Dose Admin Pantoprazole Sodium 40 mg/ 10 mls @ 5 mls/min 09/09/18 11:00 09/10/18 11:18 Syringe IV 10/09/18 10:59 5 mls/min DAILY@1100 DENITA Administration Piperacillin Sod/Tazobactam 115 mls @ 28.75 mls/hr 09/09/18 06:00 09/11/18 06:21 Sod 3.375 gm/ Dextrose IV 09/19/18 05:59 Infused Q8H DENITA Infusion Protocol Lactated Ringer's 1,000 mls @ 100 mls/hr 09/10/18 00:01 09/11/18 05:47 Lr IV 10/10/18 00:00 100 mls/hr .Q10H DENITA Infusion Acetaminophen 1,000 mg in 100 mls @ 400 mls/hr 09/09/18 21:00 09/11/18 04:42 Ofirmev IV 10/09/18 20:59 Infused Q8H DENITA Infusion Morphine Sulfate 4 mg 09/09/18 17:50 09/09/18 22:12 Morphine Sulfate IV 09/23/18 17:49 4 mg Q4H PRN Administration Pain Past Medical History Medical History Obesity Past Surgical History Surgical History No significant past surgical history H/O colonoscopy Past Anesthesia History No Hx of Anesthesia Complications and No Family Hx of Anesthesia Complications History of PONV No Motion Sickness Screening History of Motion Sickness: No Social History Smoking Status: Never smoker Do You Dip or Chew Tobacco: No Hx Alcohol Use: Yes alcohol intake frequency: holidays/special occasions only Hx Substance Use: No substance use type: does not use Exercise / Class Metabolic Activity II 4-5 Yardwork/Stairs/Walk up hill Physical Exam Vital Signs Last Vital Signs Temp 37.0 C 09/10/18 23:33 Pulse 63 09/10/18 23:33 Resp 14 09/10/18 23:33 BP 136/79 09/10/18 23:33 Pulse Ox 93 09/10/18 23:33 Testing Electrocardiogram Date: 09/08/18 Findings: + SB @ (at 56;SA;LVH) Chest X-Ray Date: 09/08/18 Findings: + NAD and + atelectasis (left basilar) Laboratory Results 09/11/18 06:25 09/11/18 06:25 PT 11.4 Seconds (9.0-12.0) 09/11/18 06:25 INR 1.1 (0.9-1.1) 09/11/18 06:25 APTT 23.9 Seconds (21.0-31.0) 09/09/18 06:13 Urine Color Yellow 09/08/18 20:15 Urine Appearance Clear (Clear) 09/08/18 20:15 Urine pH 7.5 (4.5-7.5) 09/08/18 20:15 Ur Specific [place] 1.007 (1.000-1.030) 09/08/18 20:15 Urine Protein Negative (Negative) 09/08/18 20:15 Urine Glucose (UA) Negative (Negative) 09/08/18 20:15 Urine Ketones Negative (Negative) 09/08/18 20:15 Urine Nitrite Negative (Negative) 09/08/18 20:15 Ur Leukocyte Esterase 1+ (Negative) H 09/08/18 20:15 Urine WBC (Auto) 1-5 /hpf (0-5) 09/08/18 20:15 Urine RBC (Auto) 0-4 /hpf (0-4) 09/08/18 20:15 U Hyaline Cast (Auto) 1-5 /lpf (0-5) 09/08/18 20:15 U Epithel Cells (Auto) 10-20 /lpf (0-5) H 09/08/18 20:15 Urine Bacteria (Auto) Negative (Negative) 09/08/18 20:15
--- NOTE | 2018-09-11 07:18 | Progress Note ---
Date of Service September 11, 2018 Assessment & Plan (1) Gallstone pancreatitis: 63 yo female who presented with acute cholecystitis, gallstone pancreatitis, and choledocholithiasis. She is s/p 09/09/18 ERCP with sphincterotomy, removal of stones, and CBD stent placement. LFTs and lipase are trending down and pain has improved. - OR today for laparoscopic, possible open, cholecystectomy, possible intra- operative cholangiogram. Discussed increased risk of needing to convert to an open procedure given the likely amount of inflammation associated with her disease process. - Consent obtained (see note from yesterday) - NPO for OR - Continue to trend CBC, BMP, LFTs - Continue abx, morning dose to be given within 1 hour of incision (2) Choledocholithiasis: (3) Cholecystitis: Subjective Pt reports gas, mild pain. Denies nausea. Physical Exam Vital Signs (Past 24 Hours): Last Vital Signs Temp 37.1 C 09/11/18 07:11 Pulse 79 09/11/18 07:11 Resp 16 09/11/18 07:11 BP 143/95 H 09/11/18 07:11 Pulse Ox 92 09/11/18 07:11 Constitutional: no acute distress Respiratory: normal respiratory effort Cardiovascular: Rate/Rhythm: regular rate Gastrointestinal (Abdomen): soft, nondistended, RUQ tenderness, no rebound or guarding Results & Data Laboratory Results 09/11/18 09/11/18 09/11/18 Range/Units 06:25 06:25 06:25 WBC 8.97 (4.8-10.8) K/uL RBC 4.76 (4.2-5.4) M/uL Hgb 13.5 (12.0-16.0) g/dL Hct 40.3 (37-47) % MCV 84.7 (80-100) fL MCH 28.4 (25-34) pg MCHC 33.5 (32-36) g/dL RDW Std Deviation 43.7 (36.4-46.3) fL RDW Coeff of Antoine 14.2 (11.5-14.5) % Plt Count 211 (130-400) K/uL MPV 9.4 (7.4-10.4) fL Immature Gran % (Auto) 0.2 % Neut % (Auto) 73.7 % Lymph % (Auto) 16.7 % [place] % (Auto) 7.7 % Eos % (Auto) 1.6 % Baso % (Auto) 0.1 % Immature Gran # (Auto) 0.02 (0.00-0.02) K/uL Neut # (Auto) 6.61 H (1.4-6.5) K/uL Lymph # (Auto) 1.50 (1.2-3.4) K/uL [place] # (Auto) 0.69 H (0.11-0.59) K/uL Eos # (Auto) 0.14 (0-0.5) K/uL Baso # (Auto) 0.01 (0-0.2) K/uL PT 11.4 (9.0-12.0) Seconds INR 1.1 (0.9-1.1) Sodium 143 (136-145) mmol/L Potassium 3.7 (3.5-5.1) mmol/L Chloride 110 H (98-107) mmol/L Carbon Dioxide 29 (21-32) mmol/L Anion Gap 4.0 (3-11) BUN 6 L (7-18) mg/dl Creatinine 0.75 (0.6-1.2) mg/dl Est Cr Clr Drug Dosing 85.3 ml/min Est GFR ( Amer) 99.7 Est GFR (Non-Af Amer) 86.0 BUN/Creatinine Ratio 7.8 L (10-20) Glucose 86 (70-99) mg/dl Calcium 8.5 (8.5-10.1) mg/dl Magnesium 2.2 (1.8-2.4) mg/dl Total Bilirubin 0.8 (0.2-1) mg/dl AST 75 H (15-37) U/L ALT 349 H (12-78) U/L Alkaline Phosphatase 139 H (45-117) U/L Total Protein 6.2 L (6.4-8.2) gm/dl Albumin 2.9 L (3.4-5.0) gm/dl Globulin 3.3 (2.5-4.0) gm/dl Albumin/Globulin Ratio 0.9 (0.9-2) Lipase 613 H (73-393) U/L 09/10/18 09/10/18 09/10/18 Range/Units 06:32 06:32 06:32 WBC (4.8-10.8) K/uL RBC (4.2-5.4) M/uL Hgb (12.0-16.0) g/dL Hct (37-47) % MCV (80-100) fL MCH (25-34) pg MCHC (32-36) g/dL RDW Std Deviation (36.4-46.3) fL RDW Coeff of Antoine (11.5-14.5) % Plt Count (130-400) K/uL MPV (7.4-10.4) fL Immature Gran % (Auto) % Neut % (Auto) % Lymph % (Auto) % [place] % (Auto) % Eos % (Auto) % Baso % (Auto) % Immature Gran # (Auto) (0.00-0.02) K/uL Neut # (Auto) (1.4-6.5) K/uL Lymph # (Auto) (1.2-3.4) K/uL [place] # (Auto) (0.11-0.59) K/uL Eos # (Auto) (0-0.5) K/uL Baso # (Auto) (0-0.2) K/uL PT 11.3 (9.0-12.0) Seconds INR 1.1 (0.9-1.1) Sodium 141 (136-145) mmol/L Potassium 3.7 (3.5-5.1) mmol/L Chloride 108 H (98-107) mmol/L Carbon Dioxide 28 (21-32) mmol/L Anion Gap 5.0 (3-11) BUN 7 (7-18) mg/dl Creatinine 0.70 (0.6-1.2) mg/dl Est Cr Clr Drug Dosing 91.4 ml/min Est GFR ( Amer) 108.4 Est GFR (Non-Af Amer) 93.5 BUN/Creatinine Ratio 10.7 (10-20) Glucose 98 (70-99) mg/dl Calcium 8.4 L (8.5-10.1) mg/dl Magnesium 2.2 (1.8-2.4) mg/dl Total Bilirubin 0.8 D (0.2-1) mg/dl AST 206 H (15-37) U/L ALT 533 H (12-78) U/L Alkaline Phosphatase 144 H (45-117) U/L Total Protein 6.0 L (6.4-8.2) gm/dl Albumin 2.9 L (3.4-5.0) gm/dl Globulin 3.1 (2.5-4.0) gm/dl Albumin/Globulin Ratio 0.9 (0.9-2) Lipase 1895 H (73-393) U/L
[2018-09-11] MEDS ORDERED: PROMETHAZINE HCL 12.5 MG in SODIUM CHLORIDE 0.9% 50 ML IV PRN (07:26)
[2018-09-11] MEDS ORDERED: ePHEDrine sulfate 50 MG/ML AMP IV PRN (07:26)
[2018-09-11] MEDS ORDERED: ONDANSETRON INJ 2 MG/ML 2 ML VIAL IV PRN (07:26)
[2018-09-11] MEDS ORDERED: ATROPINE SULFATE 0.1 MG/ML 10ML SYR IV PRN (07:26)
[2018-09-11] MEDS ORDERED: LABETALOL HCL IV 5 MG/ML 20ML IV PRN (07:26)
[2018-09-11] MEDS ORDERED: fentaNYL citrate 100 MCG/2 ML VIAL IV PRN (07:26)
[2018-09-11] MEDS ORDERED: NALOXONE HCL 0.4 MG/1 ML VIAL/CARP IV PRN (07:26)
[2018-09-11] MEDS ORDERED: FLUMAZENIL 0.1 MG/1 ML 10 ML VIAL IV PRN (07:26)
[2018-09-11] MEDS ORDERED: BUPIVACAINE 0.25% 30 ML VIAL ONE (08:10)
[2018-09-11] MEDS ORDERED: EPINEPHrine INJ 1 MG/ML AMP ONE (08:11)
[2018-09-11] MEDS ORDERED: ONDANSETRON INJ 2 MG/ML 2 ML VIAL ONE (08:18)
[2018-09-11] MEDS ORDERED: ROCURONIUM BROMIDE 10 MG/ML 5 ML VIAL ONE (08:18)
[2018-09-11] MEDS ORDERED: GLYCOPYRROLATE 0.2 MG/ML VIAL ONE (08:18)
[2018-09-11] MEDS ORDERED: DEXAMETHASONE SOD INJ 4 MG/ML VIAL ONE (08:18)
[2018-09-11] MEDS ORDERED: PROPOFOL IV EMULSION 10 MG/ML 20 ML VIAL IV ONE ×2 (08:18→09:53)
[2018-09-11] MEDS ORDERED: LIDOCAINE HCL 2% 2 ML VIAL/AMP(20MG/ML) INFIL ONE (08:18)
[2018-09-11] MEDS ORDERED: NEOSTIGMINE METHYLSULFATE 5 MG/5 ML SYR ONE (08:18)
[2018-09-11] MEDS ORDERED: KETOROLAC 30 MG/ML VIAL ONE (09:31)
[2018-09-11] MEDS ORDERED: CISATRACURIUM BESYLATE IV SOLN 2 MG/ML 10 ML VIAL IV ONE (09:31)
--- NOTE | 2018-09-11 10:13 | Post Operative Brief Note ---
Immediate Post Op Note v1 Date of Surgery September 11, 2018 Pre & Post Diagnosis Operation Date: 09/09/18 13:00 Pre-Op Diagnosis: ACALCULOUS CHOLECYSTITIS,PANCREATITIS Post-Op Diagnosis: ACALCULOUS CHOLECYSTITIS,PANCREATITIS Operation Date: 09/11/18 07:05 Pre-Op Diagnosis: acute cholecystitis, gallstone pancreatitis, choledocholithiasis Post-Op Diagnosis: acute cholecystitis, gallstone pancreatitis, choledocholithiasis, umbilical hernia Procedure Operation Date: 09/09/18 13:00 Actual Procedures p Esophagogastroduodenoscopy, Endoscopic Ultrasound, Endoscopic Retrograde Cholangiopancreatography, gallstone extraction, biliary stent placement, sphincterotomy - Nona Villalobos Operation Date: 09/11/18 07:05 Actual Procedures p Laparoscopic Cholecystectomy; Umbilical hernia repair(Not Applicable) - Shiloh Roach MD Surgeon Shiloh Roach MD Therapist Asst none Estimated Blood Loss 10 Findings Consistent with Post-Op Diagnosis Fluids 1200 mL Crystalloid Specimens Gallbladder to Pathology Anesthesia Type General Complications none
--- NOTE | 2018-09-11 10:55 | Anesthesiology Progress Note ---
Date of Service September 11, 2018 Anesthesia Post Procedure Vital Signs Vital Signs: Temp Pulse Pulse Resp BP BP Pulse Ox 09/11/18 10:50 36.6 C 64 18 121/76 93 09/11/18 10:40 70 18 120/73 94 09/11/18 10:30 74 16 128/70 96 09/11/18 10:23 36.7 C 80 16 122/74 96 09/11/18 07:11 37.1 C 79 16 143/95 H 92 09/10/18 23:33 37.0 C 63 14 136/79 93 09/10/18 15:24 36.3 C L 67 18 132/83 93 Pain Intensity Abdomen: Pain Intensity: 8 Notes Mental Status: alert / awake / arousable Patient Amnestic to Procedure: Yes Nausea / Vomiting: adequately controlled Pain: adequately controlled Airway Patency, RR, SpO2: stable & adequate BP & HR: stable & adequate Hydration State: stable & adequate Anesthetic Complications: no major complications apparent
[2018-09-11] MEDS: PANTOprazole 40 MG in SYRINGE 0 ML IV SCH (11:20)
--- NOTE | 2018-09-11 13:46 | Hospitalist Progress Note ---
Date of Service September 11, 2018 Assessment & Plan (1) Cholecystitis: Cholecystitis/pancreatitis-- Continue LR @ 100 ml/hr Continue Zosyn, Zofran, Protonix Morphine sulfate 4 mg IV every 3 hours as needed pain. AST, ALT peaked at 826 and 873, Lipase peaked at 17,931 though unclear if this is an accurate result as next value six hours later was 8,539. Consulted gastroenterology - for ERCP 09/10 with removal of stones and stenting. Surgery consulted - OR 09/10 for cholecystectomy (2) Pancreatitis: As above. (3) Hepatic steatosis: As seen on gallbladder US - lifestyle counseling, follow up outpatient (4) DVT prophylaxis: SCDs while inpatient Subjective Ms. Lewis is post cholecystectomy today, minimal pain. Family is at bedside. No complaints. Review of Systems All systems reviewed & are unremarkable except as noted in HPI & below Physical Exam Vital Signs (Past 24 Hours): Last Vital Signs Temp 36.5 C 09/11/18 13:00 Pulse 85 09/11/18 13:00 Resp 16 09/11/18 13:00 BP 133/77 09/11/18 13:00 Pulse Ox 90 09/11/18 13:00 Physical Exam: General: no distress Eyes: normal inspection, PERLL Respiratory: chest non tender, clear to auscultation, normal breath sounds, no respiratory distress, no accessory muscle use Cardiac: regular rate and rhythm, no rub or gallop, no murmur, no edema, no jvd GI/: hypoactive bowel sounds, small amount abdominal tenderness, soft, non distended Extremities: normal range of motion, normal strength, non tender Neuro/Psych: alert and oriented x 3, normal mood and affect Skin: normal color, dry Results & Data Laboratory Results Abnormal lab results 09/11/18 09/11/18 Range/Units 06:25 06:25 Neut # (Auto) 6.61 H (1.4-6.5) K/uL [place] # (Auto) 0.69 H (0.11-0.59) K/uL Chloride 110 H (98-107) mmol/L BUN 6 L (7-18) mg/dl BUN/Creatinine Ratio 7.8 L (10-20) AST 75 H (15-37) U/L ALT 349 H (12-78) U/L Alkaline Phosphatase 139 H (45-117) U/L Total Protein 6.2 L (6.4-8.2) gm/dl Albumin 2.9 L (3.4-5.0) gm/dl Lipase 613 H (73-393) U/L (1) Pancreatitis Acute pancreatitis complication: unspecified Chronicity: acute Pancreatitis type: unspecified pancreatitis type Qualified Code(s): K85.90 - Acute pancreatitis without necrosis or infection, unspecified
--- NOTE | 2018-09-11 14:18 | Operative Report ---
Post Operative Report Pre & Post Diagnosis Operation Date: 09/09/18 13:00 Pre-Op Diagnosis: ACALCULOUS CHOLECYSTITIS,PANCREATITIS Post-Op Diagnosis: ACALCULOUS CHOLECYSTITIS,PANCREATITIS Operation Date: 09/11/18 07:05 Pre-Op Diagnosis: acute cholecystitis, gallstone pancreatitis, choledocholithiasis Post-Op Diagnosis: acute cholecystitis, gallstone pancreatitis, choledocholithiasis, umbilical hernia Procedure Operation Date: 09/09/18 13:00 Actual Procedures p Esophagogastroduodenoscopy, Endoscopic Ultrasound, Endoscopic Retrograde Cholangiopancreatography, gallstone extraction, biliary stent placement, sphincterotomy - Nona Wilfredo Operation Date: 09/11/18 07:05 Actual Procedures p Laparoscopic Cholecystectomy; Primary umbilical hernia repair(Not Applicable) - Shiloh Roach MD Surgeon Shiloh Roach MD Decker Operator none Estimated Blood Loss 10 Findings Consistent with Post-Op Diagnosis Fluids 1200 mL crystalloid Specimens Gallbladder to Pathology Anesthesia Type General Complications none Description of Procedure History and Indications: Pt is an 63 year old female who presented with acute cholecystitis, choledoch olithiasis, and gallstone pancreatitis. She is s/p ERCP. A discussion was had with the patient about risks, benefits, and alternatives to surgery. Risks included, but are not limited to, injury to the bile ducts, bile leak, abscess, hernia, retained stone, needing to convert to an open procedure, bleeding, infection, DC, stroke, , and need for prolonged intubation. After discussion, and all questions were answered to apparent satisfaction, the freely signed consent to proceed with laparoscopic, possible open, cholecystectomy. Description of Procedure: The patient was taken to the operating room and placed in the supine position. Dana-operative antibiotics were administered and SCDs were on and working. General anesthesia was induced. A timeout was held confirming the correct otis ent, procedure, and necessary equipment. An OG tube was placed. The abdomen was prepped and draped in the usual sterile fashion. An incision was made above the umbilicus. The fascia was elevated and incised. The peritoneum was elevated and incised. Entry into the peritoneum was confirmed visually and no bowel was noted in the vicinity of the incision. The Romero cannula was inserted. The abdomen was insufflated with carbon dioxide. The patient tolerated insufflation well. The laparoscope was inserted and the abdomen inspected. No injuries from initial trocar placement were noted. The patient was placed in reverse Trendelenburg and tilted slightly to the left. Additional trocars were then inserted in the following locations: a 5 mm trocar in the epigastrium and two 5 mm trocars along the right costal margin. The gallbladder appeared inflamed and had flimsy adhesions. The dome of the gallbladder was grasped with an atraumatic grasper through the lateral port and retracted over the dome of the liver. The infundibulum was also grasped with an atraumatic grasper and retracted laterally. The peritoneum overlying the gallbladder infundibulum was incised and the cystic duct and cystic artery were identified and circumferentially dissected. The critical view of safety was visualized. The cystic duct and cystic artery were then doubly clipped on the staying side and singly on the specimen side, then divided with scissors. There was also an arterial branch that circled around the anterior aspect of the gallbladder which was also clipped and divided The gallbladder was then dissected from its peritoneal attachments by electrocautery. Hemostasis was checked. The gallbladder was placed in an endoscopic retrieval bag. The gallbladder fossa was irrigated. Hemostasis obtained. There was no evidence of bleeding from the gallbladder fossa or cystic duct artery or leakage of the bile from the cystic duct stump. Secondary trocars were removed under direct visualization. No bleeding was noted. The laparsocope and Romero cannula were withdrawn. The specimen within the endoscopic retrieval bag was removed from the peritoneal cavity and sent to Pathology. A safety pause was held confirming specimens. The fascia of the midline Romero trocar site was closed with two [id number] 0 vicryl sutures. The patient also had an umbilical hernia, which was close to the entry site for the Romero cannula. In order to provide and adequate closure decision was made to also repair the umbilical hernia. The umbilical stalk was taken down. The hernia was repaired with two [id number] 0 vicryl sutures. The umbilical stalk was then reapproximated to the fascia with a 3-0 vicryl suture. The skin was closed with subcuticular sutures of 4-0 Monocryl and Dermabond was applied to the incisions. All counts were reported as correct. The OG tube was removed. The patient was extubated and transferred to the recovery room in stable condition. I attest to the content of the Intraoperative Record and any orders documented therein. Any exceptions are noted below.
[2018-09-12] MEDS: PIPERACILLIN/TAZOBACTAM 3.375 GM in DEXTROSE 5% 100 ML IV SCH ×2 (02:02→11:21)
[2018-09-12 05:26] LABS: Creatinine Clr Calc Pharmacy 87.7 ml/min; Est GFR (Non-African American) 88.9; Magnesium 2.2 mg/dl (1.8-2.4)
[2018-09-12] MEDS: ACETAMINOPHEN 1,000 MG/100 ML VIAL IV SCH (05:33)
[2018-09-12 08:39] LABS: Albumin Level 2.7 gm/dl (3.4-5.0); Bilirubin Direct 0.2 mg/dl (0-0.2); Bilirubin,Total 0.5 mg/dl (0.2-1); Total Protein 5.9 gm/dl (6.4-8.2)
--- NOTE | 2018-09-12 09:09 | Progress Note ---
Date of Service September 12, 2018 Assessment & Plan (1) Gallstone pancreatitis: 63 yo female who presented with acute cholecystitis, gallstone pancreatitis, and choledocholithiasis. She is s/p 09/09/18 ERCP with sphincterotomy, removal of stones, and CBD stent placement and 09/11/18 laparoscopic cholecystectomy. LFTs and lipase are trending down and pain has improved. - Regular diet - Analgesia PRN (Tylenol and Oxy IR) - Okay for discharge home from surgical perspective (2) Choledocholithiasis: (3) Cholecystitis: Subjective Pain has decreased and well controlled with Tylenol. Denies nausea. Tolerating diet. Constitutional: as per Subjective / HPI Physical Exam Vital Signs (Past 24 Hours): Last Vital Signs Temp 36.8 C 09/12/18 06:58 Pulse 59 L 09/12/18 06:58 Resp 16 09/12/18 06:58 BP 132/76 09/12/18 06:58 Pulse Ox 92 09/12/18 06:58 Constitutional: no acute distress Respiratory: normal respiratory effort Cardiovascular: Rate/Rhythm: regular rate Gastrointestinal (Abdomen): soft, nondistended, appropriate incisional tenderness, incisions clean/dry/intact, no erythema or edema; (+) ecchymosis are periumbilical incision
[2018-09-12] MEDS: LACTATED RINGER'S 1,000 ML IV SCH (09:24)
[2018-09-12] MEDS: PANTOprazole 40 MG in SYRINGE 0 ML IV SCH (11:22)
--- NOTE | 2018-09-12 16:53 | Discharge Summary ---
Date of Service September 12, 2018 Admission HPI Per Admitting Provider The patient underwent ERCP yesterday for suspected choledocholithiasis. We performed an endoscopic ultrasound during the procedure and there was no evidence of an underlying pancreatic or biliary mass. This morning she notes having some discomfort but feels improved compared to yesterday. Principal Diagnosis no Discharge Data Allergies Allergy/AdvReac Type Severity Reaction Status Date / Time Sulfa (Sulfonamide Allergy Unknown UNKNOWN Verified 09/08/18 19:16 Antibiotics) Consultations 09/08/18 20:52 ED Decision to Admit Stat 09/08/18 22:42 Consult Case Management - Discharge Planning Routine Consult Gastroenterology Routine 09/09/18 13:48 Consult General Surgery Routine Procedures Performed Operation Date: 09/09/18 13:00 Actual Procedures p Endoscopic Retrograde Cholangiopancreatography, gallstone extraction, biliary stent placement, sphincterotomy - Nona garcia Esophagogastroduodenoscopy - Nona garcia Endoscopic Ultrasound - Nona Villalobos Operation Date: 09/11/18 07:05 Actual Procedures p Laparoscopic Cholecystectomy; (Not Applicable) - Shiloh Roach MD s Umbilical hernia repair(Not Applicable) - Shiloh Roach MD Ordered Studies 09/08/18 18:53 US gallbladder Stat 09/08/18 20:52 MR MRCP Stat 09/09/18 14:00 FL ERCP biliary ductal Routine 09/09/18 14:06 US upper EUS PACS images Routine Hospital Course (1) Cholecystitis: 63-year-old female admitted on September 10, 2018 because of acute cholecystitis and pancreatitis, Cholecystitis/pancreatitis-- Was on LR @ 100 ml/hr Has been on Zosyn, Zofran, Protonix Has been on morphine sulfate 4 mg IV every 3 hours as needed pain. Labs of AST, ALT peaked at 826 and 873, Lipase peaked at 17,931 though unclear if this is an accurate result as next value six hours later was 8,539. Today's AST is 59 and is 285 Consulted gastroenterology - for ERCP WAS DONE ON 09/10 with removal of stones and stenting. Surgery consulted - OR 09/10 for cholecystectomy Postop patient has been doing well, tolerating diet, no bowel movement yet however passing a lot of gas, will give you cipro and flagyl for 7 days more Advised patient to keep appointment with surgeon and GI as instructed call surgeon or gI if have any questions Upon discharge patient has no complaint, afebrile, only minimally tender in the umbilical area, Review of Systems Constitutional: negative weakness, or fatigue Respiratory: no cough, sputum, wheezing, or dyspnea on exertion Cardiac: No chest pain, No orthopnea, No PND, No claudication, No palpitations, Abdomen: No pain, No nausea, No vomiting, No diarrhea, Musculoskeletal: No joint pain, No muscle pain, No swelling, No calf pain, No problem reported : No dysuria, No urinary frequency, No incontinence, No hematuria Neurologic: No paralysis, No weakness, No numbness/tingling, No vertigo, No balance problems Psychiatric: No depression symptoms, No anhedonism, No anxiety, No insomnia, No substance abuse Heme: No abnormal bleeding/bruising, No clotting problems, No swollen lymph nodes, No night sweats Skin: No rash, No itch, No new/changing skin lesions, No color change, No bleeding Physical exam upon discharge: General Appearance: WD/WN, no apparent distress, Eyes: normal inspection, PERRL, EOMI, sclerae normal ENT: normal ENT inspection, hearing grossly normal, pharynx normal Neck: supple, no adenopathy, thyroid normal, no JVD, no carotid bruits, trachea midline Respiratory/Chest: chest non-tender, normal breath sounds, no respiratory distress, no accessory muscle use, breath sounds, rales, wheezing Cardiovascular: regular rate, rhythm, no JVD, no murmur Abdomen: normal bowel sounds, non tender, soft, no organomegaly, Extremities: normal range of motion, non-tender, normal inspection, no pedal edema, no calf tenderness, normal capillary refill, pelvis stable, joint has no limited range of motion, capillary refill is normal, no cyanosis clubbing Neurologic/Psychiatric: 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 (3) Hepatic steatosis: As seen on gallbladder US - lifestyle counseling, follow up outpatient (4) DVT prophylaxis: SCDs while inpatient Total Time Total Time Spent Total Time Spent (In Minutes): 35 Total Time Includes: Examination of the Patient, Discharge Planning, Medication Reconciliation and Communication With Other Providers Discharge Plan Discharge Items Patient Disposition: Home - Self-Care Reason For Visit: ACALCULOUS CHOLECYSTITIS,PANCREATITIS Discharge Diagnosis: acute cholecystitis, gallstone pancreatitis choledocholithiasis. Condition: Fair Discharge Goals: Decrease discomfort, Diagnostic testing, Improve disease control, Improve function and Learn about illness Activity: Resume your previous activity Non-emergency contact: Primary Care Provider, Surgeon and Graduate Engineer Call non-emergency contact if: you have any medication questions Follow-up/Referrals: Carlito Chambers MD [Primary Care Provider] - 09/19/18 3:00 pm (Please, follow up at Dr. Chambers's office with his library assistant, Amie Talbert PA-C, on WednesdaySeptember 19 at 3:00 pm. *If you need to change this appointment, call the office at [phone].) Diet: Heart Healthy and Low Fat Addtl Provider Instructions: you have acute cholecystitis, gallstone pancreatitis, and choledocholithiasis. you are s/p 09/09/18 ERCP with sphincterotomy, removal of stones, and CBD stent placement and 09/11/18 laparoscopic cholecystectomy. LFTs and lipase are trending down and pain has improved. I give you cipro and flagyl for 7 days more keep appointment with surgeon and GI as instructed call surgeon or gI if have any questions you need to follow up with your primary care physician in 1 week, - take medication as instructed, never overdose or any misuse, or take with alcohol, because misuse of medicine may cause organ damage or , call me, or your primary care physician if have questions of discharge medicaitons. - call your primary care physician, or go to local emergency room if has any fever/chill, chest pain, shortness of breathing, nausea/vomiting/abdominal pain, facial droop/slurry speech/local weakness, or if has any questions. - fall precaution - diet as instructed - you need to follow up with your subspecialists - No lifting > 10 pounds for 4 weeks - You should take Tylenol for pain. If pain is not relieved with Tylenol you may take the prescribed narcotic as needed. - Okay to shower, allow soap and water to run over incisions. Do not soak in s tanding bodies of water (bath, pool, hot tub, etc) for 2 weeks - Your incisions were closed with absorbable sutures that are under the skin. Dermabond (surgical glue with purple tint), this will gradually fall off over the course of 2 weeks. Do not peel this off. Do not allow direct exposure to sun. - Follow up in the general surgery office in 2 weeks. Please call [phone] to schedule an appointment. - Please call the above number first if you have increased pain, nausea or vomiting, a fever, or redness or drainage from your wound Prescriptions: New oxycodone 5 mg Tablet 5 mg PO Q4H PRN (Reason: Pain not relieved by Tylenol) Qty: 20 RF: 0 ciprofloxacin HCl [Cipro] 500 mg tablet 500 mg PO BID Qty: 14 RF: 0 metronidazole [Flagyl] 500 mg tablet 500 mg PO Q8H 7 Days Qty: 21 RF: 0 No Action No Known Home Medications RF: 0 Stand-Alone Forms: Call Back Authorization, [facility], [facility]/Other Patient Handouts: Oxycodone Hydrochloride Oral tablet [Abuse Deterrent] Discharge Orders: Discharge Order (Routine); Ordered 09/12/18 Ordered By: Bobby De La Fuente Admission Data Admit Date/Time: 09/08/18 21:50 Attending Provider: Bobby De La Fuente Admit Provider: Avila Stone Primary Care Provider: Carlito Chambers Other Providers: Avila Stone ; Jean Paul Encinas ; Shiloh Roach ; Charan Orellana Service: Surgical Services Other Interventions: Discharge Summary Assessment (RN) Last Done: 09/12/18 10:18 DC Date/Time DO NOT enter until pt leaves facility: 09/12/18 12:06
== END 2018-09-12 12:06 | disposition home or self-care (01) | DRG 417 ==
LOC: ED 17:53 → SUATTDRO 21:50 → 3W 21:50